=== PATIENT | female | born 1940 | race Caucasian/White ===

== ENCOUNTER 2017-01-12 18:56 | Inpatient (IN) | payer MEDICARE, OTHER, MEDICAID, SELFPAY ==
--- NOTE | 2017-01-12 19:32 | EDM.PDOC ---
ED HPI GENERAL MEDICAL PROBLEM - General Chief Complaint: Respiratory Problem Stated Complaint: SOB Time Seen by Provider: 01/12/17 19:30 - History of Present Illness INITIAL COMMENTS - FREE TEXT/NARRATIVE: Denise has been experiencing productive coughing and some escalating SOB since 1 am today. She has felt feverish, and did attend the [facility] this afternoon. The provider noted fever to 99.7 T deg F and suggested movement to ED for further evaluation. She has a PMH of COPD w asthma, and pneumonia in the past. Treatments RECORDS TECH: Reports: Other (see below) Other Treatments RECORDS TECH: used inhaler - Related Data Allergies Allergy/AdvReac Type Severity Reaction Status Date / Time albuterol Allergy Unknown Tremors Verified 01/12/17 19:18 fluticasone furoate Allergy Cough Verified 01/12/17 20:03 [From Breo Ellipta] vilanterol Allergy Cough Verified 01/12/17 20:03 [From Breo Ellipta] Home Meds: Home Meds Calcium Carbonate/Vitamin D3 [Calcium 600 + Vit D Tablet] 1 tab PO BID 11/08/13 [History] Docusate Sodium 100 mg PO BID 11/08/13 [History] Fluticasone/Salmeterol [Advair 250-50] 1 puff INH BID 11/08/13 [History] Multivitamin [Multi-Vitamin Daily] 1 tab PO DAILY 11/08/13 [History] Primidone [Mysoline] 150 mg PO DAILY 11/08/13 [History] Acetaminophen [Tylenol Arthritis Pain] 1,300 mg PO BID 10/08/15 [History] Aspirin/Calcium Carbonate/Mag [Aspirin Buffered 325 mg Tab] 1 tab PO DAILY 10/08 [History] Metoprolol Tartrate [Lopressor] 12.5 mg PO BID 10/08/15 [History] Primidone [Mysoline] 100 mg PO BEDTIME 10/08/15 [History] atorvaSTATin [Lipitor] 10 mg PO BEDTIME 10/08/15 [History] Gabapentin [Neurontin] 100 mg PO BID cap 10/11/15 [Rx] Carboxymethyl/Gly/Poly80/Pf [Refresh Optive Advanced Drops] 1 drop EYEBOTH BID 02/12/16 [History] Ipratropium [Atrovent HFA Inh] 2 puff .XX QID 02/12/16 [History] Lisinopril 5 mg PO DAILY 02/12/16 [History] Fluticasone/Salmeterol [Advair Diskus 500-50] 1 puff INH BID #1 diskus 09/20/16 [Rx] Past Medical History HEENT History: Reports: Sinusitis Other HEENT History: wears glasses Cardiovascular History: Reports: Heart valve replacement, High cholesterol, Hypertension, Pacemaker, SOB on exertion, Other (see below) Other Cardiovascular History: SICK SINUS SYNDROME Respiratory History: Reports: COPD Gastrointestinal History: Reports: Bowel obstruction 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 (see below) Other OB/BYN History: Musculoskeletal History: Reports: Osteoporosis Neurological History: Reports: Neuropathy, peripheral, Other (see below) Other Neuro History: ESSENTIAL TREMMORS Endocrine/Metabolic History: Reports: Obesity/BMI 30+ - Past Surgical History HEENT Surgical History: Reports: Cataract surgery Cardiovascular Surgical History: Reports: Pacer, Valve replacement GI Surgical History: Reports: Colon, Colonoscopy, Hernia, inguinal Musculoskeletal Surgical History: Reports: ORIF Social & Family History - Family History Endocrine/Metabolic: Reports: None - Tobacco Use Smoking Status *Q: Current Every Day Smoker Years of Tobacco use: 30 Packs/Tins Daily: 0.5 Used Tobacco, but Quit: No Second Hand Smoke Exposure: No - Caffeine Use Caffeine Use: Reports: Coffee, Tea - Alcohol Use Days Per Week of Alcohol Use: 0 - Recreational Drug Use Recreational Drug Use: No ED ROS GENERAL - Review of Systems Review Of Systems: See Below Constitutional: Reports: fever, malaise HEENT: Reports: No symptoms Respiratory: Reports: Shortness of Breath, Wheezing, Cough, Sputum Cardiovascular: Reports: Dyspnea on exertion Endocrine: Reports: no symptoms GI/Abdominal: Reports: No symptoms : Reports: no symptoms Musculoskeletal: Reports: no symptoms Skin: Reports: no symptoms Neurological: Reports: No Symptoms Psychiatric: Reports: No symptoms Hematologic/Lymphatic: Reports: no symptoms Immunologic: Reports: no symptoms ED EXAM, GENERAL - Physical Exam Exam: See Below Exam Limited By: No limitations General Appearance: alert, WD/WN, no apparent distress, anxious Eye Exam: bilateral eye: normal inspection, PERRL Ears: normal external exam, normal TMs Nose: normal inspection Throat/Mouth: Normal inspection, Normal lips, Normal oropharynx, Normal voice Head: normocephalic Neck: normal inspection, supple, non-tender, full range of motion Respiratory/Chest: chest non-tender, decreased breath sounds, crackles, wheezing , accessory muscle use, prolonged expiration Cardiovascular: systolic murmur, irregularly irregular GI/Abdominal: Normal Bowel Sounds, Soft, Non-Tender, No Organomegaly, No Distention, No Mass (Female) Exam: Deferred Rectal (Female) Exam: Deferred Back Exam: normal inspection Extremities: normal inspection Neurological: alert, oriented, CN II-XII intact, no motor/sensory deficits Psychiatric: normal affect, anxious Skin Exam: Warm, Dry, Intact, Normal color, No rash Lymphatic: no adenopathy Course - Vital Signs Text/Narrative:: Denise was admitted to the [facility] ED, administered an Atrovent Neb, Prednisone 50 mg po. Rocephin 2.0 gm IM, and supllemental 02. She lives [place] out of [place] alone, and was not suitable to return home. I recommended admission to observation with patient consent. Last Recorded V/S: Last Vital Signs Temp 37.6 C 01/12/17 19:54 Pulse 104 H 01/12/17 20:07 Resp 26 H 01/12/17 20:07 BP 132/77 01/12/17 20:07 Pulse Ox 90 L 01/12/17 20:07 - Orders/Labs/Meds Orders: Active Orders 24 hr Category Date Time Status Patient Status Manage Transfer [TRANSFER] Routine ADT 01/12/17 21:24 Ordered RT Post Treatment Assessment [RC] Click to Edit Care 01/12/17 20:11 Active Chest 2V [CR] Stat Exams 01/12/17 19:30 Taken Labs: Laboratory Tests 01/12/17 01/12/17 Range/Units 19:40 19:40 WBC 16.3 H (4.5-12.0) X10-3/uL RBC 4.62 (3.23-5.20) x10(6)uL Hgb 14.2 (11.5-15.5) g/dL Hct 42.8 (30.0-51.3) % MCV 92.6 (80-96) fL MCH 30.7 (27.7-33.6) pg MCHC 33.1 (32.2-35.4) g/dL RDW 12.5 (11.5-15.5) % Plt Count 180 (125-369) X10(3)uL MPV 7.6 (7.4-10.4) fL Add Manual Diff Yes Neutrophils % (Manual) 78 (46-82) % Band Neutrophils % 3 (0-6) % Lymphocytes % (Manual) 12 L (13-37) % Monocytes % (Manual) 6 (4-12) % Basophils % (Manual) 1 (0-2) % Sodium 136 (135-145) mmol/L Potassium 4.0 (3.5-5.3) mmol/L Chloride 103 (100-110) mmol/L Carbon Dioxide 23 (23-29) mmol/L BUN 16 (8-23) mg/dL Creatinine 0.7 (0.6-1.3) mg/dL Est Cr Clr Drug Dosing 57.20 mL/min Estimated GFR (MDRD) > 60 (>60) BUN/Creatinine Ratio 22.9 H (9-20) Glucose 117 H (80-116) mg/dL Calcium 9.8 (8.6-10.2) mg/dL Meds: Medications Discontinued Medications Generic Name Dose Route Start Last Admin Trade Name Erenq PRN Reason Stop Dose Admin Ceftriaxone Sodium 2,000 mg 01/12/17 20:13 01/12/17 21:07 Rocephin IM 01/12/17 20:14 2,000 mg ONETIME ONE Administration Ipratropium [place] 0.5 mg 01/12/17 20:10 01/12/17 20:22 Atrovent NEB 01/12/17 20:11 0.5 mg ONETIME ONE Administration Prednisone 50 mg 01/12/17 20:11 01/12/17 20:28 Prednisone PO 01/12/17 20:12 Not Given ONETIME ONE Prednisone 40 mg 01/12/17 20:26 01/12/17 20:28 Prednisone PO 01/12/17 20:27 40 mg ONETIME ONE Administration Prednisone 10 mg 01/12/17 20:27 01/12/17 20:29 Prednisone PO 01/12/17 20:28 10 mg ONETIME ONE Administration Departure - Departure Time of Disposition: 21:30 Disposition: Refer to Observation Condition: fair Clinical Impression: Acute exacerbation of COPD with asthma - Discharge Information Forms: ED Department Discharge - Problem List & Annotations (1) Acute exacerbation of COPD with asthma SNOMED Code(s): 464747973 Code(s): J44.1 - CHRONIC OBSTRUCTIVE PULMONARY DISEASE W (ACUTE) EXACERBATION ; J45.901 - UNSPECIFIED ASTHMA WITH (ACUTE) EXACERBATION Status: Acute Current Visit: Yes Annotation/Comment:: Monitor VS,offer Atrovent MDI or Nebs overnight, and supportive cares. - Problem List Review Problem List Initiated/Reviewed/Updated: Yes - My Orders Last 24 Hours: My Active Orders 01/12/17 19:30 Chest 2V [CR] Stat 01/12/17 20:11 RT Post Treatment Assessment [RC] Click to Edit 01/12/17 21:24 Patient Status Manage Transfer [TRANSFER] Routine - Assessment/Plan Last 24 Hours: My Active Orders 01/12/17 19:30 Chest 2V [CR] Stat 01/12/17 20:11 RT Post Treatment Assessment [RC] Click to Edit 01/12/17 21:24 Patient Status Manage Transfer [TRANSFER] Routine Plan: Admit to observation.
[2017-01-12] MEDS ORDERED: Ipratropium 0.02% 0.5 MG/2.5 ML Neb Soln NEB ONE (20:10)
[2017-01-12] MEDS ORDERED: predniSONE 10 MG Tab PO ONE ×2 (20:11→20:27)
[2017-01-12] MEDS ORDERED: cefTRIAXone 1,000 MG VIAL IM ONE (20:13)
[2017-01-12] MEDS ORDERED: predniSONE 20 MG Tab PO ONE (20:26)
[2017-01-12] MEDS: Acetaminophen 325 MG Tab PO PRN (23:35)
[2017-01-13] MEDS: Ipratropium 0.02% 0.5 MG/2.5 ML Neb Soln NEB PRN ×5 (00:14→15:00)
--- NOTE | 2017-01-13 09:23 | PCM.HP ---
H&P History of Present Illness - General Date of Service: 01/13/17 Admit Problem/Dx: Admission Diagnosis/Problem Admission Diagnosis/Problem COPD, Moderate chronic obstructive pulmonary disease Source of Information: Patient History Limitations: Reports: No limitations - History of Present Illness Initial Comments - Free Text/Narative: This is a 76-year-old female patient with known history of asthma/COPD. She is a lifelong smoker and smokes a pack every 4-5 days as she is trying to cut down. She states yesterday she was having chills, cough with green and yellow sputum and shortness of breath. She came in to the walk-in clinic and then was transferred over to the ER. The ureter until she should be admitted. She was hypoxic and wheezing. She states she's had chills but no fevers. She denies sore throat, nasal congestion, ear pain, sore throat, back pain. She states she gets pneumonia, COPD exacerbation and bronchitis quite frequently. - Related Data Allergies/Adverse Reactions: Allergies Allergy/AdvReac Type Severity Reaction Status Date / Time albuterol Allergy Unknown Tremors Verified 01/12/17 19:18 fluticasone furoate Allergy Cough Verified 01/12/17 20:03 [From Breo Ellipta] vilanterol Allergy Cough Verified 01/12/17 20:03 [From Breo Ellipta] Home Medications: Home Meds Calcium Carbonate/Vitamin D3 [Calcium 600 + Vit D Tablet] 1 tab PO BID 11/08/13 [History] Docusate Sodium 100 mg PO BID 11/08/13 [History] Multivitamin [Multi-Vitamin Daily] 1 tab PO DAILY 11/08/13 [History] Primidone [Mysoline] 150 mg PO DAILY 11/08/13 [History] Acetaminophen [Tylenol Arthritis Pain] 1,300 mg PO BID 10/08/15 [History] Aspirin/Calcium Carbonate/Mag [Aspirin Buffered 325 mg Tab] 1 tab PO DAILY 10/08 [History] Metoprolol Tartrate [Lopressor] 12.5 mg PO BID 10/08/15 [History] Primidone [Mysoline] 100 mg PO BEDTIME 10/08/15 [History] atorvaSTATin [Lipitor] 10 mg PO BEDTIME 10/08/15 [History] Gabapentin [Neurontin] 100 mg PO BID cap 10/11/15 [Rx] Ipratropium [Atrovent HFA Inh] 2 puff IH QID 02/12/16 [History] Lisinopril 5 mg PO DAILY 02/12/16 [History] Fluticasone/Salmeterol [Advair Diskus 500-50] 1 puff INH BID #1 diskus 09/20/16 [Rx] Cliradex Towelettes 0.5 pad EYEBOTH DAILY 01/13/17 [History] Fluticasone/Salmeterol [Advair Diskus 500-50] 1 puff IH BID 01/13/17 [History] Lidhygenix Foam 1 applic EYEBOTH DAILY 01/13/17 [History] Polyvinyl Alcohol/Povidone/Pf [Refresh Classic Eye Drops] 1 drop EYEBOTH BID 06/22 [History] Past Medical History HEENT History: Reports: Sinusitis Other HEENT History: wears glasses Cardiovascular History: Reports: Heart valve replacement, High cholesterol, Hypertension, Pacemaker, SOB on exertion, Other (see below) Other Cardiovascular History: SICK SINUS SYNDROME. 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 History: Reports: Other (see below) Other OB/BYN History: Musculoskeletal History: Reports: Osteoporosis Neurological History: Reports: Neuropathy, peripheral, Other (see below) Other Neuro History: ESSENTIAL TREMMORS Endocrine/Metabolic History: Reports: Obesity/BMI 30+ - Infectious Disease History Infectious Disease History: Reports: Chicken pox - Past Surgical History HEENT Surgical History: Reports: Cataract surgery Cardiovascular Surgical History: Reports: Pacer, Valve replacement GI Surgical History: Reports: Colon, Colonoscopy, Hernia, inguinal Female Surgical History: Reports: section Musculoskeletal Surgical History: Reports: ORIF Social & Family History - Family History Endocrine/Metabolic: Reports: None - Tobacco Use Smoking Status *Q: Current Every Day Smoker Years of Tobacco use: 40 Packs/Tins Daily: 0.1 Used Tobacco, but Quit: No Second Hand Smoke Exposure: No - Caffeine Use Caffeine Use: Reports: Coffee - Alcohol Use Days Per Week of Alcohol Use: 0 - Recreational Drug Use Recreational Drug Use: No H&P Review of Systems - Review of Systems: Review Of Systems: See Below General: Reports: chills HEENT: Reports: no symptoms Pulmonary: Reports: Shortness of Breath, Wheezing, Cough, Sputum. Denies: Pleuritic Chest Pain, Hemoptysis Cardiovascular: Reports: no symptoms Gastrointestinal: Reports: No symptoms Genitourinary: Reports: no symptoms Musculoskeletal: Reports: no symptoms Skin: Reports: no symptoms Psychiatric: Reports: no symptoms Neurological: Reports: No Symptoms Hematologic/Lymphatic: Reports: no symptoms Immunologic: Reports: no symptoms Exam - Exam Exam: See Below - Vital Signs Vital Signs: Last Vital Signs Temp 97.9 F 01/13/17 04:00 Pulse 100 01/13/17 08:16 Resp 20 01/13/17 04:00 BP 106/55 L 01/13/17 04:00 Pulse Ox 92 L 01/13/17 04:00 Weight: 135 lb 4.8 oz - Exam General: alert, oriented, cooperative HEENT: PERRLA, Hearing intact, Mucosa moist & pink, Posterior pharynx clear, TMs clear Neck: supple, trachea midline. No: carotid bruit, JVD Lungs: Decreased breath sounds, Wheezing Cardiovascular: regular rate, regular rhythm, normal S1, normal S2. No: systolic murmur, diastolic murmur Abdomen: Normal Bowel Sounds, Soft. No: Organomegaly, Peritoneal Signs, Distention, Guarding Extremities: normal inspection Skin: warm, dry, intact Neurological: strength equal bilateral, normal gait, normal speech, normal tone Neuro Extensive - Mental Status: alert, oriented x3, normal mood/affect, normal cognition, memory intact Neuro Extensive - Motor, Sensory, Reflexes: normal gait Psychiatric: alert, normal affect, normal mood - Patient Data Result Diagrams: 01/12/17 19:40 01/12/17 19:40 *Q Meaningful Use (ADM) - VTE *Q VTE Criteria *Q: - Stroke *Q Stroke Criteria *Q: - AMI *Q AMI Criteria *Q: - Problem List (1) Bronchitis SNOMED Code(s): 58670334 ICD Code: J40 - BRONCHITIS, NOT SPECIFIED ACUTE OR CHRONIC Status: Acute Current Visit: Yes (2) Acute exacerbation of COPD with asthma SNOMED Code(s): 959158610 ICD Code: J44.1 - CHRONIC OBSTRUCTIVE PULMONARY DISEASE W (ACUTE) EXACERBATION; J45.901 - UNSPECIFIED ASTHMA WITH (ACUTE) EXACERBATION Status: Acute Current Visit: Yes Problem Details: Monitor VS,offer Atrovent MDI or Nebs overnight, and supportive cares. Problem List Initiated/Reviewed/Updated: Yes Orders Last 24hrs: Active Orders 24 hr Category Date Time Status Activity as Tolerated [RC] .Routine Care 01/12/17 22:21 Active Regular Diet [DIET] Diet 01/13/17 Breakfast Active Acetaminophen [Tylenol] Med 01/12/17 22:20 Active 650 mg PO Q4H PRN Ipratropium [Atrovent] Med 01/12/17 23:45 Active 0.5 mg NEB Q4H PRN Code Status [Resuscitation Status] Routine Resus Stat 01/12/17 23:45 Ordered Medication Orders Acetaminophen (Tylenol) 650 mg PO Q4H PRN PRN Reason: Headache Last Admin: 01/12/17 23:35 Dose: 650 mg Ipratropium [place] (Atrovent) 0.5 mg NEB Q4H PRN PRN Reason: Shortness of Breath Last Admin: 01/13/17 08:16 Dose: 0.5 mg Admin: 01/13/17 04:13 Dose: 0.5 mg Admin: 01/13/17 00:14 Dose: 0.5 mg Assessment/Plan Comment:: 1. She was admitted for observation but I'm going to change her to inpatient. I don't believe she'll go home by tomorrow. 2. Solu-Medrol IV. 3. Continue Rocephin but add Zithromax 4. DuoNeb's every 4 hours and when necessary. 5. Continue home meds. 6. Recheck CBC and electrolytes in the a.m. 7. Up with assist. 8. Regular diet.
[2017-01-13] MEDS ORDERED: Azithromycin 500 MG Tab PO SCH (10:00)
[2017-01-13] MEDS: Aspirin 325 MG Tab.EC PO SCH (10:36)
[2017-01-13] MEDS: Lisinopril 5 MG Tab PO SCH (10:36)
[2017-01-13] MEDS: Multivitamin Tab PO SCH (10:37)
[2017-01-13] MEDS: Metoprolol Tartrate 25 MG Tab PO SCH ×2 (10:37→20:13)
[2017-01-13] MEDS: Docusate Sodium 100 MG Cap PO SCH ×2 (10:37→20:13)
[2017-01-13] MEDS: Acetaminophen 650 MG Tab.ER PO SCH ×2 (10:38→20:15)
[2017-01-13] MEDS: Gabapentin 100 MG Cap PO SCH ×2 (10:38→20:14)
[2017-01-13] MEDS: Primidone 50 MG Tab PO SCH ×2 (10:38→20:14)
[2017-01-13] MEDS: methylPREDNISolone Sodium Succinate 125 MG/2 ML SDV IVPUSH SCH ×2 (10:38→18:26)
[2017-01-13] MEDS: Carboxymethylcellulose Sodium 0.5% Ophth Soln 15 ML Bottle EYEBOTH SCH ×2 (10:39→20:14)
[2017-01-13] MEDS: Calcium Carbonate/Vitamin D3 1250 MG-200 Unit Tab PO SCH ×2 (10:39→20:13)
--- NOTE | 2017-01-13 13:11 | CR ---
INDICATION: COPD exacerbation. CHEST: PA and lateral views of the chest were obtained 01/12/2017 and compared with 10/09/2015 and 11/08/2013, revealing prominent AP diameter, hyperaeration, and slightly flattened diaphragm leaves, compatible with COPD. Appearance is similar to 2014. A definite active infiltrate or effusion was not identified. The heart appeared enlarged with mitral valve replacement and bipolar pacemaker leads in place, as previously in 2016. The aorta is tortuous with calcification in the arch. Evidence of median sternotomy is noted with wire sutures. Bony structures appear to be intact. IMPRESSION: 1. No acute process. 2. COPD. 3. ASHD, mild cardiomegaly, post mitral valve and bipolar pacemaker lead placement. MTDD
[2017-01-13] MEDS: Sodium Chloride 0.9% 10 ML Syringe FLUSH PRN ×2 (18:26→20:10)
[2017-01-13] MEDS: cefTRIAXone 1,000 MG in Sodium Chloride 0.9% 50 ML IV SCH (20:10)
[2017-01-13] MEDS: atorvaSTATin 10 MG Tab PO SCH (20:13)
[2017-01-13] MEDS ORDERED: Sodium Chloride 0.9% 250 ML IV SCH (20:30)
[2017-01-14] MEDS: methylPREDNISolone Sodium Succinate 125 MG/2 ML SDV IVPUSH SCH (01:22)
[2017-01-14] MEDS: Sodium Chloride 0.9% 10 ML Syringe FLUSH PRN (01:24)
[2017-01-14] MEDS: Ipratropium 0.02% 0.5 MG/2.5 ML Neb Soln NEB PRN (07:20)
--- NOTE | 2017-01-14 08:36 | PCM.PN ---
- General Info Date of Service: 01/14/17 Admission Dx/Problem (Free Text): Patient states she is breathing better today. She is coughing up phlegm and when she feels short of breath. That's less frequent. She denies chest pain, fevers, chills. She's had some pain in her left thoracic rib area for quite some time. The product manager recommended a CT scan. She denies history of leg swelling. - Patient Data Vitals - most recent: Last Vital Signs Temp 97.9 F 01/14/17 00:00 Pulse 90 01/14/17 07:23 Resp 20 01/14/17 04:00 BP 122/56 L 01/14/17 00:00 Pulse Ox 94 L 01/14/17 07:23 Weight - most recent: 135 lb 4.8 oz I&O - last 24 hours: Intake & Output 01/13/17 01/14/17 01/14/17 22:59 06:59 14:59 Intake Total 180 Balance 180 Lab Results last 24 hrs: Laboratory Results - last 24 hr 01/14/17 01/14/17 Range/Units 06:28 06:28 WBC 8.8 (4.5-12.0) X10-3/uL RBC 4.32 (3.23-5.20) x10(6)uL Hgb 13.6 (11.5-15.5) g/dL Hct 40.6 (30.0-51.3) % MCV 94.1 (80-96) fL MCH 31.5 (27.7-33.6) pg MCHC 33.4 (32.2-35.4) g/dL RDW 12.5 (11.5-15.5) % Plt Count 180 (125-369) X10(3)uL MPV 8.1 (7.4-10.4) fL Neut % (Auto) 81.5 (46-82) % Lymph % (Auto) 15.6 (13-37) % Dukes % (Auto) 2.6 L (4-12) % Eos % (Auto) 0 L (1.0-5.0) % Baso % (Auto) 0 (0-2) % Neut # (Auto) 7.2 (1.6-8.3) # Lymph # (Auto) 1.4 (0.6-5.0) # Dukes # (Auto) 0.2 (0.0-1.3) # Eos # (Auto) 0.0 (0.0-0.8) # Baso # (Auto) 0.0 (0.0-0.2) # Sodium 137 (135-145) mmol/L Potassium 4.2 (3.5-5.3) mmol/L Chloride 105 (100-110) mmol/L Carbon Dioxide 25 (23-29) mmol/L BUN 19 (8-23) mg/dL Creatinine 0.6 (0.6-1.3) mg/dL Est Cr Clr Drug Dosing 68.13 mL/min Estimated GFR (MDRD) > 60 (>60) BUN/Creatinine Ratio 31.7 H (9-20) Glucose 147 H (80-116) mg/dL Calcium 8.8 (8.6-10.2) mg/dL Total Bilirubin 0.3 (0.1-1.3) mg/dL AST 26 (5-27) IU/L ALT 16 D (14-26) IU/L Alkaline Phosphatase 64 (56-112) IU/L Total Protein 7.2 (6.0-8.0) g/dL Albumin 3.7 (3.2-4.6) g/dL Globulin 3.5 g/dL Albumin/Globulin Ratio 1.1 Med Orders - Current: Current Medications Acetaminophen (Tylenol) 650 mg PO Q4H PRN PRN Reason: Headache Last Admin: 01/12/17 23:35 Dose: 650 mg Acetaminophen (Tylenol Arthritis Pain) 1,300 mg PO BID [facility] Last Admin: 01/13/17 20:15 Dose: 1,300 mg Artificial Tears (Refresh Tears 0.5%) 0 ml EYEBOTH BID [facility] Last Admin: 01/13/17 20:14 Dose: 1 drop Aspirin (Ecotrin) 325 mg PO DAILY [facility] Last Admin: 01/13/17 10:36 Dose: 325 mg Atorvastatin Calcium (Lipitor) 10 mg PO BEDTIME [facility] Last Admin: 01/13/17 20:13 Dose: 10 mg Azithromycin (Zithromax) 250 mg PO DAILY [facility] Calcium Carbonate (Calcium Carbonate/Vitamin D 1250 Mg-200 Unit) 1 tab PO BID [facility] Last Admin: 01/13/17 20:13 Dose: 1 tab Docusate Sodium (Colace) 100 mg PO BID [facility] Last Admin: 01/13/17 20:13 Dose: 100 mg Gabapentin (Neurontin) 100 mg PO BID [facility] Last Admin: 01/13/17 20:14 Dose: 100 mg Ceftriaxone Sodium 1,000 mg/ (Sodium Chloride) 50 mls @ 100 mls/hr IV Q24H [facility] Last Admin: 01/13/17 20:10 Dose: 100 mls/hr Sodium Chloride (Normal Saline) 250 mls @ 100 mls/hr IV ASDIRECTED [facility] Last Admin: 01/13/17 20:10 Dose: 100 mls/hr Ipratropium [place] (Atrovent) 0.5 mg NEB Q4H PRN PRN Reason: Shortness of Breath Last Admin: 01/14/17 07:20 Dose: 0.5 mg Lisinopril (Prinivil) 5 mg PO DAILY [facility] Last Admin: 01/13/17 10:36 Dose: 5 mg Methylprednisolone Sodium Succinate (Solu-Medrol) 125 mg IVPUSH Q8H [facility] Last Admin: 01/14/17 01:22 Dose: 125 mg Metoprolol Tartrate (Lopressor) 12.5 mg PO BID [facility] Last Admin: 01/13/17 20:13 Dose: 12.5 mg Multivitamins/Minerals/Vitamin C (Tab-A-Neftali) 1 tab PO DAILY [facility] Last Admin: 01/13/17 10:37 Dose: 1 tab Primidone (Mysoline) 100 mg PO BEDTIME [facility] Last Admin: 01/13/17 20:14 Dose: 100 mg Primidone (Mysoline) 150 mg PO DAILY [facility] Last Admin: 01/13/17 10:38 Dose: 150 mg Sodium Chloride (Saline Flush) 10 ml FLUSH ASDIRECTED PRN PRN Reason: Keep Vein Open Last Admin: 01/14/17 01:24 Dose: 10 ml Discontinued Medications Azithromycin (Zithromax) 500 mg PO DAILY [facility] Stop: 01/13/17 10:01 Last Admin: 01/13/17 10:39 Dose: 500 mg Ceftriaxone Sodium (Rocephin) 2,000 mg IM ONETIME ONE Stop: 01/12/17 20:14 Last Admin: 01/12/17 21:07 Dose: 2,000 mg Ipratropium [place] (Atrovent) 0.5 mg NEB ONETIME ONE Stop: 01/12/17 20:11 Last Admin: 01/12/17 20:22 Dose: 0.5 mg Non-Formulary Medication (Cliradex Towelettes) 0.5 pad EYEBOTH DAILY [facility] Non-Formulary Medication (Lidhygenix Foam) 1 applic EYEBOTH DAILY [facility] Prednisone (Prednisone) 50 mg PO ONETIME ONE Stop: 01/12/17 20:12 Last Admin: 01/12/17 20:28 Dose: Not Given Prednisone (Prednisone) 40 mg PO ONETIME ONE Stop: 01/12/17 20:27 Last Admin: 01/12/17 20:28 Dose: 40 mg Prednisone (Prednisone) 10 mg PO ONETIME ONE Stop: 01/12/17 20:28 Last Admin: 01/12/17 20:29 Dose: 10 mg - Exam General: alert, oriented, cooperative Lungs: Normal respiratory effort, Decreased breath sounds (Moving a little bit more air than yesterday), Wheezing Cardiovascular: Regular Rate, Regular Rhythm, No Murmurs Back Exam: normal inspection Extremities: no edema Psy/Mental Status: alert, normal affect, normal mood - Problem List & Annotations (1) Bronchitis SNOMED Code(s): 82776835 Code(s): J40 - BRONCHITIS, NOT SPECIFIED ACUTE OR CHRONIC Status: Acute Current Visit: Yes (2) Acute exacerbation of COPD with asthma SNOMED Code(s): 764478984 Code(s): J44.1 - CHRONIC OBSTRUCTIVE PULMONARY DISEASE W (ACUTE) EXACERBATION ; J45.901 - UNSPECIFIED ASTHMA WITH (ACUTE) EXACERBATION Status: Acute Current Visit: Yes Annotation/Comment:: Monitor VS,offer Atrovent MDI or Nebs overnight, and supportive cares. - Problem List Review Problem List Initiated/Reviewed/Updated: Yes - My Orders Last 24 Hours: My Active Orders 01/13/17 10:47 Sodium Chloride 0.9% [Saline Flush] 10 ml FLUSH ASDIRECTED PRN 01/13/17 20:30 Sodium Chloride 0.9% [Normal Saline] 250 ml IV ASDIRECTED 01/13/17 21:00 cefTRIAXone [Rocephin] 1,000 mg Sodium Chloride 0.9% [Normal Saline] 50 ml IV Q24H 01/14/17 08:29 D Dimer [D-DIMER QUANTITATIVE] [COAG] Routine 01/14/17 08:32 Up ad Moraima [RC] ASDIRECTED Vital Signs [RC] QSHIFT Convert IV to Saline Lock [OM.PC] Routine 01/14/17 09:00 methylPREDNISolone Sod Succ [Solu-MEDROL] 125 mg IVPUSH DAILY - Plan Plan:: 1. change Solu-Medrol 225 mg every 24 hours. 2. Duo nebs 4 times a day and every 4 hours when necessary. 3. Change vitals every shift. 4. Start weaning down on her o2. 5. Ambulate the patient without O2 and check her O2 sats. 6. Check a d-dimer. If it's normal no further treatment. If it's elevated consider CT of the chest. Probability low for PE. 7. Up ad moraima. 8. Saline lock IV.
[2017-01-14] MEDS ORDERED: Albuterol/Ipratropium 3.0-0.5 MG/3 ML Neb Soln NEB PRN (08:45)
[2017-01-14] MEDS ORDERED: methylPREDNISolone Sodium Succinate 125 MG/2 ML SDV IVPUSH SCH (09:00)
[2017-01-14] MEDS ORDERED: [UNRECOGNIZED DRUG - OTHER] EYEBOTH SCH (09:00)
[2017-01-14] MEDS ORDERED: Albuterol/Ipratropium 3.0-0.5 MG/3 ML Neb Soln NEB SCH (09:00)
[2017-01-14] MEDS ORDERED: [UNRECOGNIZED DRUG - OTHER] EYEBOTH SCH (09:00)
[2017-01-14] MEDS: Multivitamin Tab PO SCH (09:05)
[2017-01-14] MEDS: Primidone 50 MG Tab PO SCH ×2 (09:05→21:55)
[2017-01-14] MEDS: Aspirin 325 MG Tab.EC PO SCH (09:05)
[2017-01-14] MEDS: Azithromycin 250 MG Tab PO SCH (09:05)
[2017-01-14] MEDS: Docusate Sodium 100 MG Cap PO SCH ×2 (09:05→21:53)
[2017-01-14] MEDS: Gabapentin 100 MG Cap PO SCH ×2 (09:05→21:55)
[2017-01-14] MEDS: Calcium Carbonate/Vitamin D3 1250 MG-200 Unit Tab PO SCH ×2 (09:05→21:53)
[2017-01-14] MEDS: Carboxymethylcellulose Sodium 0.5% Ophth Soln 15 ML Bottle EYEBOTH SCH ×2 (09:06→21:55)
[2017-01-14] MEDS: Acetaminophen 650 MG Tab.ER PO SCH ×2 (09:09→21:56)
[2017-01-14] MEDS: Lisinopril 5 MG Tab PO SCH (09:09)
[2017-01-14] MEDS: Metoprolol Tartrate 25 MG Tab PO SCH ×2 (09:09→21:57)
[2017-01-14] MEDS: Ipratropium 0.02% 0.5 MG/2.5 ML Neb Soln NEB SCH ×3 (11:15→21:53)
[2017-01-14] MEDS: atorvaSTATin 10 MG Tab PO SCH (21:54)
[2017-01-14] MEDS: cefTRIAXone 1,000 MG in Sodium Chloride 0.9% 50 ML IV SCH (21:56)
[2017-01-15] MEDS ORDERED: Ipratropium 0.02% 0.5 MG/2.5 ML Neb Soln NEB ONE (02:32)
[2017-01-15] MEDS: Ipratropium 0.02% 0.5 MG/2.5 ML Neb Soln NEB SCH ×4 (07:06→21:08)
[2017-01-15] MEDS: Acetaminophen 325 MG Tab PO PRN (07:32)
[2017-01-15] MEDS: Docusate Sodium 100 MG Cap PO SCH ×2 (09:01→21:14)
[2017-01-15] MEDS: Calcium Carbonate/Vitamin D3 1250 MG-200 Unit Tab PO SCH ×2 (09:01→21:10)
[2017-01-15] MEDS: Aspirin 325 MG Tab.EC PO SCH (09:01)
[2017-01-15] MEDS: Gabapentin 100 MG Cap PO SCH ×2 (09:03→21:16)
[2017-01-15] MEDS: Primidone 50 MG Tab PO SCH ×2 (09:03→21:13)
[2017-01-15] MEDS: Azithromycin 250 MG Tab PO SCH (09:04)
[2017-01-15] MEDS: Carboxymethylcellulose Sodium 0.5% Ophth Soln 15 ML Bottle EYEBOTH SCH ×2 (09:04→21:12)
[2017-01-15] MEDS: Multivitamin Tab PO SCH (09:04)
[2017-01-15] MEDS: predniSONE 20 MG Tab PO SCH ×2 (09:11→17:47)
[2017-01-15] MEDS: Lisinopril 5 MG Tab PO SCH (09:12)
[2017-01-15] MEDS: Acetaminophen 650 MG Tab.ER PO SCH ×2 (11:26→21:14)
--- NOTE | 2017-01-15 13:46 | PN ---
DATE SEEN: 01/15/2017 REASON FOR VISIT: COPD. HISTORY OF PRESENT ILLNESS: This is a 76-year-old female, who was admitted for COPD exacerbation. Even though she is off oxygen this morning, she complains of shortness of breath and coughing on any ambulation or any exertion. The cough is productive. She has wheezing. Denies fever or chills. REVIEW OF SYSTEMS: All other systems were negative. ALLERGIES TO MEDICATIONS: Reviewed. PAST MEDICAL HISTORY: COPD, sick sinus syndrome, hypertension, peripheral neuropathy, essential tremors. PHYSICAL EXAMINATION: GENERAL: Not in distress. VITAL SIGNS: Blood pressure 116/52, temperature is 98.0. EAR, NOSE, AND THROAT: Negative. NECK: Supple. CHEST: End-expiratory rhonchi. Tachypnea. EXTREMITIES: No edema. MENTAL STATUS: Anxious. IMPRESSION: Chronic obstructive pulmonary disease exacerbation. PLAN: Switch to oral prednisone and azithromycin. Organize and obtain a nebulizer machine and oxygen at home for possible discharge tomorrow. Repeat a CBC, BNP and basic metabolic profile tomorrow morning. /[id number] MYKEL/SHARDAL
[2017-01-15] MEDS: atorvaSTATin 10 MG Tab PO SCH (21:16)
[2017-01-16] MEDS: Ipratropium 0.02% 0.5 MG/2.5 ML Neb Soln NEB SCH (07:17)
[2017-01-16] MEDS: Primidone 50 MG Tab PO SCH (08:26)
[2017-01-16] MEDS: Aspirin 325 MG Tab.EC PO SCH (08:27)
[2017-01-16] MEDS: Calcium Carbonate/Vitamin D3 1250 MG-200 Unit Tab PO SCH (08:27)
[2017-01-16] MEDS: Docusate Sodium 100 MG Cap PO SCH (08:27)
[2017-01-16] MEDS: Multivitamin Tab PO SCH (08:27)
[2017-01-16] MEDS: predniSONE 20 MG Tab PO SCH (08:27)
[2017-01-16] MEDS: Acetaminophen 650 MG Tab.ER PO SCH (08:28)
[2017-01-16] MEDS: Gabapentin 100 MG Cap PO SCH (08:28)
[2017-01-16] MEDS: Lisinopril 5 MG Tab PO SCH (08:29)
[2017-01-16] MEDS: Azithromycin 250 MG Tab PO SCH (08:29)
[2017-01-16] MEDS: Carboxymethylcellulose Sodium 0.5% Ophth Soln 15 ML Bottle EYEBOTH SCH (08:29)
[2017-01-16 08:30] VITALS: BP 137/69
--- NOTE | 2017-01-16 09:13 | PN ---
DATE SEEN: 01/16/2017 REASON FOR VISIT: COPD. HISTORY OF PRESENT ILLNESS: This is a 76-year-old female who has had COPD. Overnight, she did quite well. She still has some tightness and cough, but has been off oxygen for more than 24 hours. No fever has been reported. Denies any chest pain. REVIEW OF SYSTEMS: All other systems unremarkable. ALLERGIES: Albuterol and vilanterol. PHYSICAL EXAMINATION: VITAL SIGNS: Blood pressure is 111/59, oxygenation 92% on room air. EARS, NOSE, AND THROAT: Negative. NECK: Supple. CHEST: Mild occasional rhonchi. EXTREMITIES: No edema. LABORATORY DATA: White cell count is 8.5 today. Potassium is 5.4. BNP 110. IMPRESSION: Chronic obstructive pulmonary disease exacerbation. PLAN: To discharge home today. She will go home on prednisone 20 mg b.i.d., Atrovent. She will need services for med management /[id number] MYKEL/LEONARDO GARCIA
--- NOTE | 2017-01-16 22:05 | DISCH ---
DISCHARGE DATE: 01/16/2017 REASON FOR ADMISSION: Chronic obstructive pulmonary disease exacerbation. DISCHARGE DIAGNOSIS: Chronic obstructive pulmonary disease exacerbation. BRIEF HISTORY AND HOSPITAL COURSE: This is a 76-year-old female, who was brought in because of shortness of breath. She has a history of COPD, sick sinus syndrome, hypertension, and peripheral neuropathy and essential tremors. She continues to smoke. Chest x-ray was negative. She was put on azithromycin, Solu-Medrol, SVNs, her symptoms improved. She did not need oxygenation the last 24 hours. I discharged her home on nebulized therapy of Atrovent, and prednisone 10 mg b.i.d., and to complete a 5-day course of azithromycin. I therefore sent on three more days of 250 mg daily. OTHER DISCHARGE MEDICATIONS: Lisinopril 5 mg daily, Lipitor 10 mg a day, primidone 150 mg daily, and 100 mg at bedtime, 1 multivitamin a day, gabapentin 100 mg b.i.d., docusate 100 mg b.i.d., calcium carbonate 1 tablet b.i.d., aspirin 325 mg a day, acetaminophen 1300 mg b.i.d. FOLLOWUP: She will see Dr. Shari Vital next week on . She is advised to return to the ED with any worsening of symptoms and smoke cessation counseling was provided for 3-5 minutes. I spent more than 35 minute in the discharge of the patient. /[id number] MYKEL/LEONARDO
== END 2017-01-16 09:40 | disposition home health service (06) | DRG 192 ==
LOC: FB.ED 18:56 → FB.MS 21:24 → OBSVTOIN 01-13 09:42
PROVIDERS: ADMIT Family Medicine; ATTEND Family Medicine
DX: J44.0 Chronic obstructive pulmonary disease with (acute) lower respiratory infection (principal); J20.9 Acute bronchitis, unspecified; J44.1 Chronic obstructive pulmonary disease with (acute) exacerbation; F17.200 Nicotine dependence, unspecified, uncomplicated; I10 Essential (primary) hypertension; E78.00 Pure hypercholesterolemia, unspecified; Z95.2 Presence of prosthetic heart valve; M81.0 Age-related osteoporosis without current pathological fracture; G62.9 Polyneuropathy, unspecified; E66.9 Obesity, unspecified; Z68.30 Body mass index [BMI] 30.0-30.9, adult; Z79.82 Long term (current) use of aspirin; Z79.899 Other long term (current) drug therapy; Z88.8 Allergy status to other drugs, medicaments and biological substances; G25.0 Essential tremor
CPT/HCPCS: 36415; 71020; 80048; 85025; 94640 ×2; 96372; 99285; A9270 ×3; J0696; 80053; 83880; 85379; G0378; J2930; J7050

== ENCOUNTER 2017-02-16 08:47 | Inpatient (IN) | payer MEDICARE, OTHER, MEDICAID ==
[2017-02-16] MEDS ORDERED: Warfarin Sliding Scale PO SCH (16:00)
[2017-02-16] MEDS: atorvaSTATin 10 MG Tab PO SCH (18:22)
--- NOTE | 2017-02-16 19:07 | PCM.HP ---
H&P History of Present Illness - General Date of Service: 02/16/17 Admit Problem/Dx: Admission Diagnosis/Problem Admission Diagnosis/Problem CVA, Cerebrovascular accident Source of Information: Patient History Limitations: Reports: No Limitations - History of Present Illness Initial Comments - Free Text/Narative: This is a 76-year-old female patient that had a left CVA with right-sided weakness. She was transferred to [facility]. Discharged to [facility] for rehab. She says she had profound weakness in the arm and the leg. Now the leg is recovered and is mostly just the hand. She denies dysphagia or aphagia. She has a history of atrial fibrillation and a valve repair on Coumadin. She has no other concerns today. - Related Data Allergies/Adverse Reactions: Allergies Allergy/AdvReac Type Severity Reaction Status Date / Time albuterol Allergy Unknown Tremors Verified 01/12/17 19:18 fluticasone furoate Allergy Cough Verified 01/12/17 20:03 [From Breo Ellipta] vilanterol Allergy Cough Verified 01/12/17 20:03 [From Breo Ellipta] Home Medications: Home Meds Docusate Sodium 100 mg PO BID 11/08/13 [History] Multivitamin [Multi-Vitamin Daily] 1 tab PO DAILY 11/08/13 [History] Primidone [Mysoline] 150 mg PO DAILY 11/08/13 [History] Acetaminophen [Tylenol Arthritis Pain] 1,300 mg PO BID 10/08/15 [History] Metoprolol Tartrate [Lopressor] 12.5 mg PO BID 10/08/15 [History] Primidone [Mysoline] 100 mg PO BEDTIME 10/08/15 [History] atorvaSTATin [Lipitor] 10 mg PO 1800 10/08/15 [History] Gabapentin [Neurontin] 100 mg PO BID cap 10/11/15 [Rx] Ipratropium [Atrovent HFA] 2 puff IH QID 02/12/16 [History] Lisinopril 5 mg PO DAILY 02/12/16 [History] Fluticasone/Salmeterol [Advair Diskus 500-50] 1 puff INH BID #1 diskus 09/20/16 [Rx] Polyvinyl Alcohol/Povidone/Pf [Refresh Classic Eye Drops] 1 drop EYEBOTH BID 06/22 [History] Amoxicillin [Amoxil] 500 mg PO Q8H 02/16/17 [History] Aspirin 81 mg PO DAILY 02/16/17 [History] Calcium Carbonate/Vitamin D3 [Calcium 500 + Vit D 200 Caplet] 1 each PO BID [History] Warfarin Sliding Scale [Coumadin Sliding Scale] 1 each PO DAILY 02/16/17 [ History] Past Medical History HEENT History: Reports: Sinusitis Other HEENT History: wears glasses Cardiovascular History: Reports: Heart Valve Replacement, High Cholesterol, Hypertension, Pacemaker, SOB on Exertion, Other (See Below) Other Cardiovascular History: SICK SINUS SYNDROME. 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 History: Musculoskeletal History: Reports: Osteoporosis Neurological History: Reports: Neuropathy, Peripheral, Other (See Below) Other Neuro History: ESSENTIAL TREMMORS Endocrine/Metabolic History: Reports: Obesity/BMI 30+ - Infectious Disease History Infectious Disease History: Reports: Chicken Pox - Past Surgical History HEENT Surgical History: Reports: Cataract Surgery Cardiovascular Surgical History: Reports: Pacer, Valve Replacement GI Surgical History: Reports: Colon, Colonoscopy, Hernia, Inguinal Female Surgical History: Reports: Section Musculoskeletal Surgical History: Reports: ORIF Social & Family History - Family History Endocrine/Metabolic: Reports: None - Tobacco Use Smoking Status *Q: Current Every Day Smoker Years of Tobacco use: 10 Packs/Tins Daily: 1 Used Tobacco, but Quit: No Second Hand Smoke Exposure: No - Caffeine Use Caffeine Use: Reports: Coffee - Alcohol Use Days Per Week of Alcohol Use: 0 - Recreational Drug Use Recreational Drug Use: No H&P Review of Systems - Review of Systems: Review Of Systems: See Below General: Reports: No Symptoms HEENT: Reports: No Symptoms Pulmonary: Reports: No Symptoms Cardiovascular: Reports: No Symptoms Gastrointestinal: Reports: No Symptoms Genitourinary: Reports: No Symptoms Musculoskeletal: Reports: Other (See HPI) Skin: Reports: No Symptoms Psychiatric: Reports: No Symptoms Neurological: Reports: No Symptoms Hematologic/Lymphatic: Reports: No Symptoms Immunologic: Reports: No Symptoms Exam - Exam Exam: See Below - Vital Signs Vital Signs: Last Vital Signs Temp 98.2 F 02/16/17 16:07 Pulse 90 02/16/17 16:07 Resp 17 02/16/17 16:07 BP 126/64 02/16/17 16:07 Pulse Ox 94 L 02/16/17 16:07 Weight: 135 lb 4.8 oz - Exam General: Alert, Oriented, Cooperative HEENT: Conjunctiva Clear, Hearing Intact, Mucosa Moist & [place], Posterior Pharynx Clear, TMs Clear. No: Abnormal Pupils, Rhinitis Neck: Supple, Trachea Midline. No: Carotid Bruit Lungs: Clear to Auscultation, Normal Respiratory Effort Cardiovascular: Regular Rate, Irregular Rhythm. No: Systolic Murmur Abdomen: Normal Bowel Sounds, Soft. No: Peritoneal Signs, Distention, Guarding Back Exam: Normal Inspection, Full Range of Motion Extremities: Other (Right arm and hand weakness. Left arm, both legs normal strength and symmetric.) Skin: Warm, Dry, Intact, Ecchymosis Neurological: Normal Speech, Normal Tone Neuro Extensive - Mental Status: Alert, Oriented x3, Normal Mood/Affect, Normal Cognition Psychiatric: Alert, Normal Affect, Normal Mood *Q Meaningful Use (ADM) - VTE *Q VTE Criteria *Q: - Stroke *Q Stroke Criteria *Q: - AMI *Q AMI Criteria *Q: - Problem List (1) Left-sided cerebrovascular accident (CVA) SNOMED Code(s): 261584685 ICD Code: I63.9 - CEREBRAL INFARCTION, UNSPECIFIED Status: Acute Current Visit: Yes (2) Atrial fibrillation SNOMED Code(s): 80902673 ICD Code: I48.91 - UNSPECIFIED ATRIAL FIBRILLATION Status: Acute Current Visit: Yes Problem List Initiated/Reviewed/Updated: Yes Orders Last 24hrs: Active Orders 24 hr Category Date Time Status Patient Status [ADT] Routine ADT 02/16/17 12:00 Active Patient Status [ADT] Routine ADT 02/16/17 17:04 Active Oxygen Therapy [RC] PRN Care 02/16/17 17:04 Active Up With Assistance [RC] ASDIRECTED Care 02/16/17 17:04 Active VTE/DVT Education [RC] Per Unit Routine Care 02/16/17 17:04 Active Vital Signs [RC] PER UNIT ROUTINE Care 02/16/17 17:04 Active OT Evaluation and Treatment [CONS] Routine Cons 02/16/17 12:00 Active PT Evaluation and Treatment [CONS] Routine Cons 02/16/17 12:00 Active Regular Diet [DIET] Diet 02/16/17 Dinner Active Regular Diet [DIET] Diet 02/16/17 Dinner Active INR,PT,PROTHROMBIN TIME [COAG] DAILY Lab 02/17/17 05:10 Ordered INR,PT,PROTHROMBIN TIME [COAG] DAILY Lab 02/18/17 05:10 Ordered INR,PT,PROTHROMBIN TIME [COAG] DAILY Lab 02/19/17 05:10 Ordered Acetaminophen [Tylenol Arthritis Pain] Med 02/16/17 21:00 Active 1,300 mg PO BID Amoxicillin [Amoxil] Med 02/16/17 22:00 Active 500 mg PO Q8H Aspirin Med 02/17/17 09:00 Active 81 mg PO DAILY Calcium Carbonate/Vitamin D3 [Calcium Carbonate/Vitamin Med 02/16/17 21:00 Active D 1250 MG-200 Unit] 1 tab PO BID Docusate Sodium [Colace] Med 02/16/17 21:00 Active 100 mg PO BID Gabapentin [Neurontin] Med 02/16/17 21:00 Active 100 mg PO BID Ipratropium [Atrovent HFA] Med 02/16/17 21:00 Active 0 gm INH QIDRT Lisinopril [Prinivil] Med 02/17/17 09:00 Active 5 mg PO DAILY Metoprolol Tartrate [Lopressor] Med 02/16/17 21:00 Active 12.5 mg PO BID Mometasone/Formoterol [Dulera 200-5 MCG] Med 02/16/17 21:00 Active 2 puff IH BIDRT Multivitamins [Tab-A-Neftali] Med 02/17/17 09:00 Active 1 tab PO DAILY Polyvinyl Alcohol/Povidone/Pf [Refresh Classic Eye Med 02/16/17 21:00 Pending Drops] 1 drop EYEBOTH BID Primidone [Mysoline] Med 02/16/17 21:00 Active 100 mg PO BEDTIME Primidone [Mysoline] Med 02/17/17 09:00 Active 150 mg PO DAILY Warfarin Sliding Scale [Coumadin Sliding Scale] Med 02/16/17 16:00 Pending 1 each PO 1600 atorvaSTATin [Lipitor] Med 02/16/17 18:00 Active 10 mg PO 1800 Resuscitation Status Routine Resus Stat 02/16/17 17:04 Ordered Medication Orders Acetaminophen (Tylenol Arthritis Pain) 1,300 mg PO BID ADAN Amoxicillin (Amoxil) 500 mg PO Q8H ADAN Aspirin (Aspirin) 81 mg PO DAILY [facility] Atorvastatin Calcium (Lipitor) 10 mg PO 1800 [facility] Last Admin: 02/16/17 18:22 Dose: 10 mg Calcium Carbonate (Calcium Carbonate/Vitamin D 1250 Mg-200 Unit) 1 tab PO BID [facility] Docusate Sodium (Colace) 100 mg PO BID [facility] Gabapentin (Neurontin) 100 mg PO BID [facility] Ipratropium [place] (Atrovent Hfa) 0 gm INH QIDRT [facility] Lisinopril (Prinivil) 5 mg PO DAILY [facility] Metoprolol Tartrate (Lopressor) 12.5 mg PO BID [facility] Mometasone Furoate/Formoterol Fumar (Dulera 200-5 Mcg) 2 puff IH BIDRT [facility] Multivitamins/Minerals/Vitamin C (Tab-A-Neftali) 1 tab PO DAILY [facility] Non-Formulary Medication (Polyvinyl Alcohol/Povidone/Pf [Refresh Classic Eye Drops]) 1 drop EYEBOTH BID [facility] Primidone (Mysoline) 150 mg PO DAILY [facility] Primidone (Mysoline) 100 mg PO BEDTIME [facility] Warfarin Sodium (Coumadin Sliding Scale) 1 each PO 1600 [facility] Assessment/Plan Comment:: 1. Admit to swing bed. 2. Discussed living will. Patient wants to be a full code. 3. PT/OT. 4. Pharmacy to dose Coumadin. 5. Regular medications as per [facility].
[2017-02-16] MEDS ORDERED: Formoterol/Mometasone 100-5 MCG 8.8 GM Inhaler ONE (21:23)
[2017-02-16] MEDS: Ipratropium 12.9 GM Inhaler INH SCH (21:41)
[2017-02-16] MEDS: Docusate Sodium 100 MG Cap PO SCH (21:43)
[2017-02-16] MEDS: Calcium Carbonate/Vitamin D3 1250 MG-200 Unit Tab PO SCH (21:43)
[2017-02-16] MEDS: Gabapentin 100 MG Cap PO SCH (21:46)
[2017-02-16] MEDS: Acetaminophen 650 MG Tab.ER PO SCH (21:46)
[2017-02-16] MEDS: Amoxicillin 500 MG Cap PO SCH (21:47)
[2017-02-16] MEDS: Formoterol/Mometasone 200-5 MCG 8.8 GM Inhaler IH SCH (21:52)
[2017-02-16] MEDS: Metoprolol Tartrate 25 MG Tab PO SCH (21:54)
[2017-02-16] MEDS: Primidone 50 MG Tab PO SCH (22:10)
[2017-02-17] MEDS: Amoxicillin 500 MG Cap PO SCH ×3 (06:10→21:25)
[2017-02-17] MEDS: Ipratropium 12.9 GM Inhaler INH SCH ×4 (06:39→20:46)
[2017-02-17] MEDS: Formoterol/Mometasone 200-5 MCG 8.8 GM Inhaler IH SCH ×2 (06:40→20:46)
[2017-02-17] MEDS: Calcium Carbonate/Vitamin D3 1250 MG-200 Unit Tab PO SCH ×2 (08:23→20:46)
[2017-02-17] MEDS: Aspirin 81 MG Tab.Chew PO SCH (08:23)
[2017-02-17] MEDS: Metoprolol Tartrate 25 MG Tab PO SCH ×2 (08:24→21:25)
[2017-02-17] MEDS: Gabapentin 100 MG Cap PO SCH ×2 (08:26→20:47)
[2017-02-17] MEDS: Primidone 50 MG Tab PO SCH ×2 (08:26→20:47)
[2017-02-17] MEDS: Acetaminophen 650 MG Tab.ER PO SCH ×2 (08:27→20:47)
[2017-02-17] MEDS: Multivitamin Tab PO SCH (08:27)
[2017-02-17] MEDS: Lisinopril 5 MG Tab PO SCH (08:27)
[2017-02-17] MEDS: Docusate Sodium 100 MG Cap PO SCH ×2 (09:00→20:46)
[2017-02-17] MEDS ORDERED: Warfarin Sliding Scale PO SCH (09:00)
[2017-02-17] MEDS: POLYVINYL ALCOHOL EYEBOTH SCH ×3 (10:45→20:45)
[2017-02-17] MEDS: POVIDONE EYEBOTH SCH ×3 (10:45→20:45)
[2017-02-17] MEDS ORDERED: Warfarin 5 MG Tab PO SCH (16:00)
[2017-02-17] MEDS: atorvaSTATin 10 MG Tab PO SCH (18:02)
[2017-02-18] MEDS: Amoxicillin 500 MG Cap PO SCH ×2 (06:20→14:53)
[2017-02-18] MEDS: Ipratropium 12.9 GM Inhaler INH SCH ×4 (06:21→20:05)
[2017-02-18] MEDS: Formoterol/Mometasone 200-5 MCG 8.8 GM Inhaler IH SCH ×2 (06:25→20:08)
[2017-02-18] MEDS: Docusate Sodium 100 MG Cap PO SCH ×2 (10:10→20:07)
[2017-02-18] MEDS: Calcium Carbonate/Vitamin D3 1250 MG-200 Unit Tab PO SCH ×2 (10:10→20:07)
[2017-02-18] MEDS: Aspirin 81 MG Tab.Chew PO SCH (10:10)
[2017-02-18] MEDS: Metoprolol Tartrate 25 MG Tab PO SCH ×2 (10:10→20:09)
[2017-02-18] MEDS: Gabapentin 100 MG Cap PO SCH ×2 (10:11→20:12)
[2017-02-18] MEDS: Primidone 50 MG Tab PO SCH ×2 (10:11→20:12)
[2017-02-18] MEDS: Acetaminophen 650 MG Tab.ER PO SCH ×2 (10:12→20:13)
[2017-02-18] MEDS: POLYVINYL ALCOHOL EYEBOTH SCH ×2 (10:12→20:13)
[2017-02-18] MEDS: POVIDONE EYEBOTH SCH ×2 (10:12→20:13)
[2017-02-18] MEDS: Lisinopril 5 MG Tab PO SCH (10:12)
[2017-02-18] MEDS: Multivitamin Tab PO SCH (10:12)
[2017-02-18] MEDS ORDERED: Warfarin 5 MG, Warfarin 2.5 MG PO SCH ×2 (16:00)
[2017-02-18] MEDS: atorvaSTATin 10 MG Tab PO SCH (17:52)
[2017-02-19] MEDS: Ipratropium 12.9 GM Inhaler INH SCH ×4 (06:52→20:47)
[2017-02-19] MEDS: Formoterol/Mometasone 200-5 MCG 8.8 GM Inhaler IH SCH (06:52)
[2017-02-19] MEDS: Metoprolol Tartrate 25 MG Tab PO SCH ×2 (10:38→20:53)
[2017-02-19] MEDS: Calcium Carbonate/Vitamin D3 1250 MG-200 Unit Tab PO SCH ×2 (10:38→20:52)
[2017-02-19] MEDS: Aspirin 81 MG Tab.Chew PO SCH (10:38)
[2017-02-19] MEDS: Docusate Sodium 100 MG Cap PO SCH ×2 (10:38→20:52)
[2017-02-19] MEDS: POLYVINYL ALCOHOL EYEBOTH SCH ×2 (10:39→21:58)
[2017-02-19] MEDS: Gabapentin 100 MG Cap PO SCH ×2 (10:39→20:52)
[2017-02-19] MEDS: Multivitamin Tab PO SCH (10:39)
[2017-02-19] MEDS: Acetaminophen 650 MG Tab.ER PO SCH ×2 (10:39→20:53)
[2017-02-19] MEDS: Lisinopril 5 MG Tab PO SCH (10:39)
[2017-02-19] MEDS: POVIDONE EYEBOTH SCH ×2 (10:39→21:58)
[2017-02-19] MEDS: Primidone 50 MG Tab PO SCH ×2 (10:39→20:52)
--- NOTE | 2017-02-19 11:17 | PN ---
DATE SEEN: 02/19/2017 SUBJECTIVE: Denise Oreilly is a 76-year-old, female, admitted to swing bed. She has been here for three days duration, admitted on 02/16/2017. She was an inpatient at [facility]. CT by report including angiogram, CT angiogram revealed really no deficit. The patient speaks otherwise. Discharge home with TIA, but indeed persistent weakness of the right upper extremity. Ambulating with greater success with right leg in particular. LABORATORY STUDIES: INR 1.86. Coumadin levels to be adjusted according to today's ProTime. PHYSICAL EXAMINATION: VITAL SIGNS: Blood pressure 125/62, mean blood pressure 83, pulse 90, respirations 16, and O2 saturation 94%. GENERAL: Conversant as always. Speech was fluent. No facial asymmetry. Tongue midline. Good gag reflex. NECK: Benign. Thyroid small. No adenopathy. CHEST: Clear all lung allen. HEART: Regular without ectopy or murmur. ABDOMEN: Benign. EXTREMITIES: Left lower extremity equal to right lower extremity, by observation, weakness of about 25% reduction in right hand. IMPRESSION: CVA not TIA, persistent right residual weakness. PLAN: Further testing not indicated. PT actively involved, expect a short-term stay. /[id number] JOSH/LEONARDO
[2017-02-19] MEDS ORDERED: Warfarin 5 MG, Warfarin 2.5 MG PO SCH ×2 (16:00)
[2017-02-19] MEDS: atorvaSTATin 10 MG Tab PO SCH (17:07)
[2017-02-19] MEDS: ADVAIR 500/50 INH SCH (20:52)
[2017-02-20] MEDS: Ipratropium 12.9 GM Inhaler INH SCH ×4 (07:02→21:31)
[2017-02-20] MEDS: ADVAIR 500/50 INH SCH ×2 (07:02→21:33)
[2017-02-20] MEDS: Calcium Carbonate/Vitamin D3 1250 MG-200 Unit Tab PO SCH ×2 (08:42→21:33)
[2017-02-20] MEDS: Aspirin 81 MG Tab.Chew PO SCH (08:42)
[2017-02-20] MEDS: Metoprolol Tartrate 25 MG Tab PO SCH ×2 (08:42→21:34)
[2017-02-20] MEDS: Docusate Sodium 100 MG Cap PO SCH ×2 (08:42→21:33)
[2017-02-20] MEDS: Primidone 50 MG Tab PO SCH ×2 (08:43→21:33)
[2017-02-20] MEDS: Gabapentin 100 MG Cap PO SCH ×2 (08:43→21:34)
[2017-02-20] MEDS: Multivitamin Tab PO SCH (08:44)
[2017-02-20] MEDS: Acetaminophen 650 MG Tab.ER PO SCH ×2 (08:44→21:34)
[2017-02-20] MEDS: POVIDONE EYEBOTH SCH ×2 (08:44→21:34)
[2017-02-20] MEDS: POLYVINYL ALCOHOL EYEBOTH SCH ×2 (08:44→21:34)
[2017-02-20] MEDS: Lisinopril 5 MG Tab PO SCH (08:44)
--- NOTE | 2017-02-20 12:21 | PN ---
DATE SEEN: 02/20/2017 SUBJECTIVE: Denise Oreilly is a 76-year-old female in swing bed. She had a CVA with right-sided weakness. More profound right upper extremity than right lower extremity. Ambulating without difficulty. OT is actively involved. OBJECTIVE: GENERAL: In good spirits. CHEST: Clear. HEART: Regular. ABDOMEN: Benign. NEUROLOGIC: Electroplater strength reduced to about 20% in the right- hand. ASSESSMENT: Cerebrovascular accident with right-sided weakness. PLAN: Continue therapy and intervention. /[id number] JOSH/LEONARDO
[2017-02-20] MEDS ORDERED: Warfarin 2.5 MG Tab PO SCH (16:00)
[2017-02-20] MEDS: atorvaSTATin 10 MG Tab PO SCH (17:48)
[2017-02-21] MEDS: Ipratropium 12.9 GM Inhaler INH SCH ×4 (06:46→21:19)
[2017-02-21] MEDS: ADVAIR 500/50 INH SCH ×2 (06:47→21:20)
[2017-02-21] MEDS: Calcium Carbonate/Vitamin D3 1250 MG-200 Unit Tab PO SCH ×2 (08:41→21:19)
[2017-02-21] MEDS: Acetaminophen 650 MG Tab.ER PO SCH ×2 (08:41→21:21)
[2017-02-21] MEDS: Gabapentin 100 MG Cap PO SCH ×2 (08:41→21:20)
[2017-02-21] MEDS: Aspirin 81 MG Tab.Chew PO SCH (08:42)
[2017-02-21] MEDS: Docusate Sodium 100 MG Cap PO SCH ×2 (08:42→21:19)
[2017-02-21] MEDS: Metoprolol Tartrate 25 MG Tab PO SCH ×2 (08:42→21:22)
[2017-02-21] MEDS: Primidone 50 MG Tab PO SCH ×2 (08:43→21:20)
[2017-02-21] MEDS: Lisinopril 5 MG Tab PO SCH (08:44)
[2017-02-21] MEDS: POVIDONE EYEBOTH SCH ×2 (08:44→21:22)
[2017-02-21] MEDS: POLYVINYL ALCOHOL EYEBOTH SCH ×2 (08:44→21:22)
[2017-02-21] MEDS: Multivitamin Tab PO SCH (08:45)
[2017-02-21] MEDS ORDERED: Warfarin 5 MG Tab PO SCH (16:00)
[2017-02-21] MEDS: atorvaSTATin 10 MG Tab PO SCH (17:56)
[2017-02-22] MEDS: ADVAIR 500/50 INH SCH ×2 (06:50→20:20)
[2017-02-22] MEDS: Ipratropium 12.9 GM Inhaler INH SCH ×4 (06:50→20:12)
--- NOTE | 2017-02-22 08:30 | PCM.PN ---
- General Info Date of Service: 02/22/17 Admission Dx/Problem (Free Text): Patient states she feels like her right eye and right mouth drooping last couple days. She states she has a couple very small aneurysms in her brain that the neurologist in are watching. She denies any right sided weakness, swallowing, speaking, diplopia, blurred vision. She continues to have the right arm weakness but she says it's improving. - Patient Data Vitals - most recent: Last Vital Signs Temp 97.7 F 02/21/17 09:00 Pulse 84 02/21/17 21:22 Resp 18 02/21/17 09:00 BP 122/60 02/21/17 21:22 Pulse Ox 93 L 02/21/17 09:00 Weight - most recent: 135 lb 4.8 oz I&O - last 24 hours: Intake & Output 02/21/17 02/22/17 02/22/17 22:59 06:59 14:59 Intake Total 220 Balance 220 Lab Results last 24 hrs: Laboratory Results - last 24 hr 02/22/17 Range/Units 06:23 PT 17.8 H (8.7-11.1) INR 1.74 H (0.89-1.13) Med Orders - Current: Current Medications Acetaminophen (Tylenol Arthritis Pain) 1,300 mg PO BID [facility] Last Admin: 02/21/17 21:21 Dose: 1,300 mg Aspirin (Aspirin) 81 mg PO DAILY [facility] Last Admin: 02/21/17 08:42 Dose: 81 mg Atorvastatin Calcium (Lipitor) 10 mg PO 1800 [facility] Last Admin: 02/21/17 17:56 Dose: 10 mg Calcium Carbonate (Calcium Carbonate/Vitamin D 1250 Mg-200 Unit) 1 tab PO BID [facility] Last Admin: 02/21/17 21:19 Dose: 1 tab Docusate Sodium (Colace) 100 mg PO BID [facility] Last Admin: 02/21/17 21:19 Dose: 100 mg Gabapentin (Neurontin) 100 mg PO BID [facility] Last Admin: 02/21/17 21:20 Dose: 100 mg Ipratropium [place] (Atrovent Hfa) 0 gm INH QIDRT [facility] Last Admin: 02/22/17 06:50 Dose: 2 puff Lisinopril (Prinivil) 5 mg PO DAILY [facility] Last Admin: 02/21/17 08:44 Dose: 5 mg Metoprolol Tartrate (Lopressor) 12.5 mg PO BID [facility] Last Admin: 02/21/17 21:22 Dose: 12.5 mg Multivitamins/Minerals/Vitamin C (Tab-A-Neftali) 1 tab PO DAILY [facility] Last Admin: 02/21/17 08:45 Dose: 1 tab Non-Formulary Medication 1 Each ( Polyvinyl Alcohol/Povidone] *Ptom 1 drop EYEBOTH BID [facility] Last Admin: 02/21/17 21:22 Dose: 1 drop Advair 500/50 1 each INH BIDRT [facility] Last Admin: 02/22/17 06:50 Dose: 1 each Primidone (Mysoline) 150 mg PO DAILY [facility] Last Admin: 02/21/17 08:43 Dose: 150 mg Primidone (Mysoline) 100 mg PO BEDTIME [facility] Last Admin: 02/21/17 21:20 Dose: 100 mg Warfarin Sodium (Coumadin Sliding Scale) 1 each PO 1600 [facility] Warfarin Sodium (Coumadin) 5 mg PO 1600 [facility] Last Admin: 02/21/17 16:26 Dose: 5 mg Discontinued Medications Amoxicillin (Amoxil) 500 mg PO Q8H [facility] Stop: 02/18/17 14:01 Last Admin: 02/18/17 14:53 Dose: 500 mg Mometasone Furoate/Formoterol Fumar (Dulera 200-5 Mcg) 2 puff IH BIDRT [facility] Last Admin: 02/17/17 06:40 Dose: 2 puff Mometasone Furoate/Formoterol Fumar (Dulera 100-5 Mcg) Confirm Administered Dose 60 puff .ROUTE .[facility] Stop: 02/16/17 21:24 Last Admin: 02/16/17 21:47 Dose: Not Given Mometasone Furoate/Formoterol Fumar (Dulera 200-5 Mcg) 2 puff IH BIDRT [facility] Last Admin: 02/19/17 06:52 Dose: 2 puff Warfarin Sodium (Coumadin Sliding Scale) 1 each PO DAILY [facility] Warfarin Sodium (Coumadin) 5 mg PO 1600 [facility] Last Admin: 02/17/17 16:09 Dose: 5 mg Warfarin Sodium 5 mg/ Warfarin (Sodium 2.5 mg) 7.5 mg PO 1600 [facility] Stop: 02/18/17 16:01 Last Admin: 02/18/17 17:14 Dose: 7.5 mg Warfarin Sodium 5 mg/ Warfarin (Sodium 2.5 mg) 7.5 mg PO 1600 [facility] Stop: 02/19/17 16:01 Last Admin: 02/19/17 15:47 Dose: 7.5 mg Warfarin Sodium (Coumadin) 2.5 mg PO 1600 [facility] Stop: 02/20/17 16:01 Last Admin: 02/20/17 16:22 Dose: 2.5 mg - Exam General: alert, oriented, cooperative Neck: supple Lungs: Clear to auscultation, Normal respiratory effort Cardiovascular: Regular Rate, Irregular Rhythm. No: Murmurs Extremities: other (Right arm weakness. Left arm and leg are normal. Right leg normal strength.) Skin: warm, dry, intact Neurological: normal speech, normal tone, other (I tested all the cranial nerves in the normal. She has no signs of right facial weakness.) - Problem List & Annotations (1) Left-sided cerebrovascular accident (CVA) SNOMED Code(s): 157505021 Code(s): I63.9 - CEREBRAL INFARCTION, UNSPECIFIED Status: Acute Current Visit: Yes (2) Atrial fibrillation SNOMED Code(s): 14674666 Code(s): I48.91 - UNSPECIFIED ATRIAL FIBRILLATION Status: Acute Current Visit: Yes - Problem List Review Problem List Initiated/Reviewed/Updated: Yes - My Orders Last 24 Hours: My Active Orders 02/21/17 16:00 Warfarin [Coumadin] 5 mg PO 1600 02/23/17 06:00 INR,PT,PROTHROMBIN TIME [COAG] DAILY - Plan Plan:: 1. Continue PT/OT. 2. I do not see any evidence of stroke on her right face her left arm at this time. I told her it would be different than the one she has now. She is on Coumadin. We will watch closely to see if there is any changes.
[2017-02-22] MEDS: Metoprolol Tartrate 25 MG Tab PO SCH ×2 (08:31→20:18)
[2017-02-22] MEDS: Docusate Sodium 100 MG Cap PO SCH ×2 (08:31→20:12)
[2017-02-22] MEDS: Calcium Carbonate/Vitamin D3 1250 MG-200 Unit Tab PO SCH ×2 (08:31→20:12)
[2017-02-22] MEDS: Aspirin 81 MG Tab.Chew PO SCH (08:31)
[2017-02-22] MEDS: Lisinopril 5 MG Tab PO SCH (08:32)
[2017-02-22] MEDS: POLYVINYL ALCOHOL EYEBOTH SCH ×2 (08:32→20:13)
[2017-02-22] MEDS: Acetaminophen 650 MG Tab.ER PO SCH ×2 (08:32→20:13)
[2017-02-22] MEDS: POVIDONE EYEBOTH SCH ×2 (08:32→20:13)
[2017-02-22] MEDS: Multivitamin Tab PO SCH (08:32)
[2017-02-22] MEDS: Primidone 50 MG Tab PO SCH ×2 (08:32→20:13)
[2017-02-22] MEDS: Gabapentin 100 MG Cap PO SCH ×2 (08:32→20:13)
[2017-02-22] MEDS ORDERED: Warfarin 5 MG, Warfarin 2.5 MG PO SCH ×2 (16:00)
[2017-02-22] MEDS: atorvaSTATin 10 MG Tab PO SCH (17:21)
[2017-02-23] MEDS: Ipratropium 12.9 GM Inhaler INH SCH ×4 (07:03→20:48)
[2017-02-23] MEDS: ADVAIR 500/50 INH SCH ×2 (07:04→20:50)
[2017-02-23] MEDS: Metoprolol Tartrate 25 MG Tab PO SCH ×2 (08:55→20:48)
[2017-02-23] MEDS: Aspirin 81 MG Tab.Chew PO SCH (08:55)
[2017-02-23] MEDS: Calcium Carbonate/Vitamin D3 1250 MG-200 Unit Tab PO SCH ×2 (08:55→20:48)
[2017-02-23] MEDS: Docusate Sodium 100 MG Cap PO SCH ×2 (08:55→20:48)
[2017-02-23] MEDS: Primidone 50 MG Tab PO SCH ×2 (08:56→20:49)
[2017-02-23] MEDS: POLYVINYL ALCOHOL EYEBOTH SCH ×2 (08:57→20:50)
[2017-02-23] MEDS: Gabapentin 100 MG Cap PO SCH ×2 (08:57→20:50)
[2017-02-23] MEDS: POVIDONE EYEBOTH SCH ×2 (08:57→20:50)
[2017-02-23] MEDS: Lisinopril 5 MG Tab PO SCH (08:57)
[2017-02-23] MEDS: Acetaminophen 650 MG Tab.ER PO SCH ×2 (08:58→20:50)
[2017-02-23] MEDS: Multivitamin Tab PO SCH (08:58)
[2017-02-23] MEDS: Warfarin 5 MG Tab PO SCH (16:42)
[2017-02-23] MEDS: atorvaSTATin 10 MG Tab PO SCH (18:25)
[2017-02-24] MEDS: Ipratropium 12.9 GM Inhaler INH SCH ×4 (06:10→20:40)
[2017-02-24] MEDS: ADVAIR 500/50 INH SCH ×2 (06:12→20:49)
--- NOTE | 2017-02-24 08:55 | PCM.PN ---
- General Info Date of Service: 02/24/17 Admission Dx/Problem (Free Text): Patient without complaints. Right hand is improving but still weak. - Patient Data Vitals - most recent: Last Vital Signs Temp 98.5 F 02/23/17 08:25 Pulse 89 02/23/17 20:48 Resp 16 02/23/17 08:25 BP 114/66 02/23/17 20:48 Pulse Ox 94 L 02/23/17 08:25 Weight - most recent: 137 lb 6.4 oz I&O - last 24 hours: Intake & Output 02/23/17 02/24/17 02/24/17 22:59 06:59 14:59 Intake Total 250 Output Total 0 Balance 250 Lab Results last 24 hrs: Laboratory Results - last 24 hr 02/24/17 Range/Units 06:25 PT 26.7 H (8.7-11.1) INR 2.59 H (0.89-1.13) Med Orders - Current: Current Medications Acetaminophen (Tylenol Arthritis Pain) 1,300 mg PO BID [facility] Last Admin: 02/23/17 20:50 Dose: 1,300 mg Aspirin (Aspirin) 81 mg PO DAILY [facility] Last Admin: 02/23/17 08:55 Dose: 81 mg Atorvastatin Calcium (Lipitor) 10 mg PO 1800 [facility] Last Admin: 02/23/17 18:25 Dose: 10 mg Calcium Carbonate (Calcium Carbonate/Vitamin D 1250 Mg-200 Unit) 1 tab PO BID [facility] Last Admin: 02/23/17 20:48 Dose: 1 tab Docusate Sodium (Colace) 100 mg PO BID [facility] Last Admin: 02/23/17 20:48 Dose: 100 mg Gabapentin (Neurontin) 100 mg PO BID [facility] Last Admin: 02/23/17 20:50 Dose: 100 mg Ipratropium [place] (Atrovent Hfa) 0 gm INH QIDRT [facility] Last Admin: 02/24/17 06:10 Dose: 2 puff Lisinopril (Prinivil) 5 mg PO DAILY [facility] Last Admin: 02/23/17 08:57 Dose: 5 mg Metoprolol Tartrate (Lopressor) 12.5 mg PO BID [facility] Last Admin: 02/23/17 20:48 Dose: 12.5 mg Multivitamins/Minerals/Vitamin C (Tab-A-Neftali) 1 tab PO DAILY [facility] Last Admin: 02/23/17 08:58 Dose: 1 tab Non-Formulary Medication 1 Each ( Polyvinyl Alcohol/Povidone] *Ptom 1 drop EYEBOTH BID [facility] Last Admin: 02/23/17 20:50 Dose: 1 drop Advair 500/50 1 each INH BIDRT [facility] Last Admin: 02/24/17 06:12 Dose: 1 each Primidone (Mysoline) 150 mg PO DAILY [facility] Last Admin: 02/23/17 08:56 Dose: 150 mg Primidone (Mysoline) 100 mg PO BEDTIME [facility] Last Admin: 02/23/17 20:49 Dose: 100 mg Warfarin Sodium (Coumadin Sliding Scale) 1 each PO 1600 [facility] Warfarin Sodium (Coumadin) 5 mg PO SuTuWeThSa@1600 [facility] Last Admin: 02/23/17 16:42 Dose: 5 mg Warfarin Sodium 2.5 mg/ (Warfarin Sodium 5 mg) 7.5 mg PO MoFr@1600 [facility] Discontinued Medications Amoxicillin (Amoxil) 500 mg PO Q8H [facility] Stop: 02/18/17 14:01 Last Admin: 02/18/17 14:53 Dose: 500 mg Mometasone Furoate/Formoterol Fumar (Dulera 200-5 Mcg) 2 puff IH BIDRT [facility] Last Admin: 02/17/17 06:40 Dose: 2 puff Mometasone Furoate/Formoterol Fumar (Dulera 100-5 Mcg) Confirm Administered Dose 60 puff .ROUTE .[facility] Stop: 02/16/17 21:24 Last Admin: 02/16/17 21:47 Dose: Not Given Mometasone Furoate/Formoterol Fumar (Dulera 200-5 Mcg) 2 puff IH BIDRT [facility] Last Admin: 02/19/17 06:52 Dose: 2 puff Warfarin Sodium (Coumadin Sliding Scale) 1 each PO DAILY [facility] Warfarin Sodium (Coumadin) 5 mg PO 1600 [facility] Last Admin: 02/17/17 16:09 Dose: 5 mg Warfarin Sodium 5 mg/ Warfarin (Sodium 2.5 mg) 7.5 mg PO 1600 [facility] Stop: 02/18/17 16:01 Last Admin: 02/18/17 17:14 Dose: 7.5 mg Warfarin Sodium (Coumadin) 5 mg PO 1600 [facility] Last Admin: 02/21/17 16:26 Dose: 5 mg Warfarin Sodium 5 mg/ Warfarin (Sodium 2.5 mg) 7.5 mg PO 1600 [facility] Stop: 02/19/17 16:01 Last Admin: 02/19/17 15:47 Dose: 7.5 mg Warfarin Sodium (Coumadin) 2.5 mg PO 1600 [facility] Stop: 02/20/17 16:01 Last Admin: 02/20/17 16:22 Dose: 2.5 mg Warfarin Sodium 5 mg/ Warfarin (Sodium 2.5 mg) 7.5 mg PO 1600 [facility] Stop: 02/22/17 16:01 Last Admin: 02/22/17 15:50 Dose: 7.5 mg - Exam General: alert, oriented, cooperative Lungs: Normal respiratory effort Extremities: no edema - Problem List & Annotations (1) Left-sided cerebrovascular accident (CVA) SNOMED Code(s): 565109394 Code(s): I63.9 - CEREBRAL INFARCTION, UNSPECIFIED Status: Acute Current Visit: Yes (2) Atrial fibrillation SNOMED Code(s): 69984073 Code(s): I48.91 - UNSPECIFIED ATRIAL FIBRILLATION Status: Acute Current Visit: Yes - Problem List Review Problem List Initiated/Reviewed/Updated: Yes - My Orders Last 24 Hours: My Active Orders 02/23/17 16:00 Warfarin [Coumadin] 5 mg PO SuTuWeThSa@1600 02/26/17 16:00 Warfarin [Coumadin] 7.5 mg PO MoFr@1600 - Plan Plan:: 1. Discharged home on home home health, PT, OT.
--- NOTE | 2017-02-24 09:03 | PCM.DCSUM1 ---
Discharge Summary - Hospital Course Free Text/Narrative:: Hospital course-patient did well. She had PT/OT. The only real issue she was having as weakness in her right hand. Legs were fine with strength and ambulation. They worked with her and she slowly got better but still had some residual right hand weakness. On one day she felt that she was having facial droop on the right side which is the opposite side of her stroke. Negative evaluation. Patient feelings improved. INR was managed by pharmacy. Brief History: This is a 76-year-old female patient that had a left CVA with right-sided weakness. She was transferred to [facility]. Discharged to [facility]Note 3] for rehab. She says she had profound weakness in the arm and the leg. Now the leg is recovered and is mostly just the hand. She denies dysphagia or aphagia. She has a history of atrial fibrillation and a valve repair on Coumadin. She has no other concerns today. - Discharge Data Discharge Date: 02/24/17 Discharge Disposition: Home, Home Health Agency Condition: Good - Discharge Diagnosis/Problem(s) (1) Left-sided cerebrovascular accident (CVA) SNOMED Code(s): 141183325 ICD Code: I63.9 - CEREBRAL INFARCTION, UNSPECIFIED Status: Acute Current Visit: Yes (2) Atrial fibrillation SNOMED Code(s): 63080800 ICD Code: I48.91 - UNSPECIFIED ATRIAL FIBRILLATION Status: Acute Current Visit: Yes - Patient Summary/Data Consults: Consultations 02/16/17 12:00 OT Evaluation and Treatment [CONS] Routine Please Evaluate and Treat. OT Reason for Consult: CVA with RIGHT HEMIPARESIS This query below is only for informational purposes and is not editable. PT Evaluation and Treatment [CONS] Routine Please Evaluate and Treat. PT Reason for Consult: cva with left hemiparesis This query below is only for informational purposes and is not editable. - Patient Instructions Diet: Regular Diet as Tolerated Activity: As Tolerated Driving: Do Not Drive Showering/Bathing: May Shower Notify Provider of: Increased Pain, Swelling and Redness Other/Special Instructions: 1. Recheck with Sonia Vital in 7-10 days. 2. INR in 2 days on Wednesday and call to essential clinic and get plugged into the INR clinic. 3. Home health, PT, OT in regards to home safety, medication management, strengthening, ambulation, ADLs, education - Discharge Plan Prescriptions/Med Rec: Warfarin [Coumadin] 7.5 mg PO MoFr@1600 #30 tablet Warfarin [Coumadin] 5 mg PO SuTuWeThSa@1600 #30 tablet Home Medications: Home Meds Docusate Sodium 100 mg PO BID 11/08/13 [History] Multivitamin [Multi-Vitamin Daily] 1 tab PO DAILY 11/08/13 [History] Primidone [Mysoline] 150 mg PO DAILY 11/08/13 [History] Acetaminophen [Tylenol Arthritis Pain] 1,300 mg PO BID 10/08/15 [History] Metoprolol Tartrate [Lopressor] 12.5 mg PO BID 10/08/15 [History] Primidone [Mysoline] 100 mg PO BEDTIME 10/08/15 [History] atorvaSTATin [Lipitor] 10 mg PO 1800 10/08/15 [History] Gabapentin [Neurontin] 100 mg PO BID cap 10/11/15 [Rx] Ipratropium [Atrovent HFA] 2 puff IH QID 02/12/16 [History] Lisinopril 5 mg PO DAILY 02/12/16 [History] Fluticasone/Salmeterol [Advair Diskus 500-50] 1 puff INH BID #1 diskus 09/20/16 [Rx] Polyvinyl Alcohol/Povidone/Pf [Refresh Classic Eye Drops] 1 drop EYEBOTH BID 06/22 [History] Amoxicillin [Amoxil] 500 mg PO Q8H 02/16/17 [History] Aspirin 81 mg PO DAILY 02/16/17 [History] Calcium Carbonate/Vitamin D3 [Calcium 500-Vit D3 200 Caplet] 1 each PO BID 02/16 [History] Warfarin Sliding Scale [Coumadin Sliding Scale] 1 each PO DAILY 02/16/17 [ History] Warfarin [Coumadin] 5 mg PO SuTuWeThSa@1600 #30 tablet 02/24/17 [Rx] Warfarin [Coumadin] 7.5 mg PO MoFr@1600 #30 tablet 02/24/17 [Rx] - Discharge Summary/Plan Comment DC Time >30 min.: No - Patient Data Vitals - Most Recent: Last Vital Signs Temp 98.5 F 02/23/17 08:25 Pulse 89 02/23/17 20:48 Resp 16 06/20/17 08:25 BP 114/66 02/23/17 20:48 Pulse Ox 94 L 02/23/17 08:25 Weight - Most Recent: 137 lb 6.4 oz I&O - Last 24 hours: Intake & Output 02/23/17 02/24/17 02/24/17 22:59 06:59 14:59 Intake Total 250 Output Total 0 Balance 250 Lab Results - Last 24 hrs: Laboratory Results - last 24 hr 02/24/17 Range/Units 06:25 PT 26.7 H (8.7-11.1) INR 2.59 H (0.89-1.13) Med Orders - Current: Current Medications Acetaminophen (Tylenol Arthritis Pain) 1,300 mg PO BID [facility] Last Admin: 02/23/17 20:50 Dose: 1,300 mg Aspirin (Aspirin) 81 mg PO DAILY [facility] Last Admin: 02/23/17 08:55 Dose: 81 mg Atorvastatin Calcium (Lipitor) 10 mg PO 1800 [facility] Last Admin: 02/23/17 18:25 Dose: 10 mg Calcium Carbonate (Calcium Carbonate/Vitamin D 1250 Mg-200 Unit) 1 tab PO BID [facility] Last Admin: 02/23/17 20:48 Dose: 1 tab Docusate Sodium (Colace) 100 mg PO BID [facility] Last Admin: 02/23/17 20:48 Dose: 100 mg Gabapentin (Neurontin) 100 mg PO BID [facility] Last Admin: 02/23/17 20:50 Dose: 100 mg Ipratropium [place] (Atrovent Hfa) 0 gm INH QIDRT [facility] Last Admin: 02/24/17 06:10 Dose: 2 puff Lisinopril (Prinivil) 5 mg PO DAILY [facility] Last Admin: 02/23/17 08:57 Dose: 5 mg Metoprolol Tartrate (Lopressor) 12.5 mg PO BID [facility] Last Admin: 02/23/17 20:48 Dose: 12.5 mg Multivitamins/Minerals/Vitamin C (Tab-A-Neftali) 1 tab PO DAILY [facility] Last Admin: 02/23/17 08:58 Dose: 1 tab Non-Formulary Medication 1 Each ( Polyvinyl Alcohol/Povidone] *Ptom 1 drop EYEBOTH BID [facility] Last Admin: 02/23/17 20:50 Dose: 1 drop Advair 500/50 1 each INH BIDRT [facility] Last Admin: 02/24/17 06:12 Dose: 1 each Primidone (Mysoline) 150 mg PO DAILY [facility] Last Admin: 02/23/17 08:56 Dose: 150 mg Primidone (Mysoline) 100 mg PO BEDTIME [facility] Last Admin: 02/23/17 20:49 Dose: 100 mg Warfarin Sodium (Coumadin Sliding Scale) 1 each PO 1600 [facility] Warfarin Sodium (Coumadin) 5 mg PO SuTuWeThSa@1600 [facility] Last Admin: 02/23/17 16:42 Dose: 5 mg Warfarin Sodium 2.5 mg/ (Warfarin Sodium 5 mg) 7.5 mg PO MoFr@1600 [facility] Discontinued Medications Amoxicillin (Amoxil) 500 mg PO Q8H [facility] Stop: 02/18/17 14:01 Last Admin: 02/18/17 14:53 Dose: 500 mg Mometasone Furoate/Formoterol Fumar (Dulera 200-5 Mcg) 2 puff IH BIDRT [facility] Last Admin: 02/17/17 06:40 Dose: 2 puff Mometasone Furoate/Formoterol Fumar (Dulera 100-5 Mcg) Confirm Administered Dose 60 puff .ROUTE .[facility] Stop: 02/16/17 21:24 Last Admin: 02/16/17 21:47 Dose: Not Given Mometasone Furoate/Formoterol Fumar (Dulera 200-5 Mcg) 2 puff IH BIDRT [facility] Last Admin: 02/19/17 06:52 Dose: 2 puff Warfarin Sodium (Coumadin Sliding Scale) 1 each PO DAILY [facility] Warfarin Sodium (Coumadin) 5 mg PO 1600 [facility] Last Admin: 02/17/17 16:09 Dose: 5 mg Warfarin Sodium 5 mg/ Warfarin (Sodium 2.5 mg) 7.5 mg PO 1600 [facility] Stop: 02/18/17 16:01 Last Admin: 02/18/17 17:14 Dose: 7.5 mg Warfarin Sodium (Coumadin) 5 mg PO 1600 [facility] Last Admin: 02/21/17 16:26 Dose: 5 mg Warfarin Sodium 5 mg/ Warfarin (Sodium 2.5 mg) 7.5 mg PO 1600 [facility] Stop: 02/19/17 16:01 Last Admin: 02/19/17 15:47 Dose: 7.5 mg Warfarin Sodium (Coumadin) 2.5 mg PO 1600 [facility] Stop: 02/20/17 16:01 Last Admin: 02/20/17 16:22 Dose: 2.5 mg Warfarin Sodium 5 mg/ Warfarin (Sodium 2.5 mg) 7.5 mg PO 1600 [facility] Stop: 02/22/17 16:01 Last Admin: 02/22/17 15:50 Dose: 7.5 mg *Q Meaningful Use (DIS) - VTE *Q VTE Criteria *Q: - Stroke *Q Stroke Criteria *Q: - AMI *Q AMI Criteria *Q:
[2017-02-24] MEDS: Aspirin 81 MG Tab.Chew PO SCH (09:28)
[2017-02-24] MEDS: Calcium Carbonate/Vitamin D3 1250 MG-200 Unit Tab PO SCH ×2 (09:28→20:44)
[2017-02-24] MEDS: Metoprolol Tartrate 25 MG Tab PO SCH ×2 (09:28→20:46)
[2017-02-24] MEDS: Docusate Sodium 100 MG Cap PO SCH ×2 (09:28→20:44)
[2017-02-24] MEDS: Gabapentin 100 MG Cap PO SCH ×2 (09:37→20:48)
[2017-02-24] MEDS: Primidone 50 MG Tab PO SCH ×2 (09:37→20:47)
[2017-02-24] MEDS: POLYVINYL ALCOHOL EYEBOTH SCH ×2 (09:37→20:50)
[2017-02-24] MEDS: POVIDONE EYEBOTH SCH ×2 (09:37→20:50)
[2017-02-24] MEDS: Lisinopril 5 MG Tab PO SCH (09:38)
[2017-02-24] MEDS: Multivitamin Tab PO SCH (09:38)
[2017-02-24] MEDS: Acetaminophen 650 MG Tab.ER PO SCH ×2 (09:38→20:51)
[2017-02-24] MEDS: Warfarin 5 MG Tab PO SCH (16:42)
[2017-02-24] MEDS: atorvaSTATin 10 MG Tab PO SCH (18:14)
[2017-02-24 20:55] VITALS: BP 108/55
[2017-02-26] MEDS ORDERED: Warfarin 2.5 MG, Warfarin 5 MG PO SCH ×2 (16:00)
== END 2017-02-24 21:00 | disposition home health service (06) | DRG 57 ==
LOC: FB.MS 15:35
PROVIDERS: ADMIT Family Medicine; ATTEND Family Medicine
DX: I69.951 Hemiplegia and hemiparesis following unspecified cerebrovascular disease affecting right dominant side (principal); F17.210 Nicotine dependence, cigarettes, uncomplicated; J44.9 Chronic obstructive pulmonary disease, unspecified; I10 Essential (primary) hypertension; I48.91 Unspecified atrial fibrillation; Z95.2 Presence of prosthetic heart valve; Z88.8 Allergy status to other drugs, medicaments and biological substances; Z79.82 Long term (current) use of aspirin; E78.00 Pure hypercholesterolemia, unspecified; Z95.0 Presence of cardiac pacemaker; R25.1 Tremor, unspecified
CPT/HCPCS: 36415; 85610; 97112-GO; 97116-GP; 97161-GP; 97166-GO; 97535-GO; A9270-GY

== ENCOUNTER 2017-03-12 16:40 | Emergency (ER) | payer MEDICARE, OTHER, MEDICAID ==
[2017-03-12] MEDS ORDERED: HYDROmorphone 2 MG/ML SDV IVPUSH ONE (17:52)
[2017-03-12] MEDS ORDERED: Ondansetron 4 MG/2 ML SDV IVPUSH ONE (17:54)
[2017-03-12] MEDS: Sodium Chloride 0.9% 10 ML Syringe FLUSH PRN ×3 (18:10→20:34)
[2017-03-12] MEDS ORDERED: Iopamidol 755 Mg/ML 100 ML Bottle IV ONE (18:52)
[2017-03-12] MEDS ORDERED: HYDROmorphone 2 MG/ML SDV IM ONE (20:30)
[2017-03-12] MEDS ORDERED: Sodium Chloride 0.9% 1,000 ML IV SCH (21:15)
[2017-03-12 21:31] VITALS: BP 125/66
--- NOTE | 2017-03-14 11:06 | ER ---
DATE SEEN: 03/12/2017 CHIEF COMPLAINT: Abdominal pain. HISTORY OF PRESENT ILLNESS: This 76-year-old woman had a CVA in the first week in February. She was in [place] and was taken immediately to [facility] and treated for CVA. The left CVA resulted in right hemiparesis, which with physical therapy has resolved leaving a right hand hemiparesis. Since then, she was seen on 03/10/2017 in the clinic and treated for urinary tract infection. Macrodantin was started 2 days ago. The patient is on anticoagulant because for her CVA. She has previous history of seizure disorder treated with Mysoline. Hypertension treated with lisinopril. Dyslipidemia treated with atorvastatin. For the past 2 days, she has had increasing midepigastric abdominal discomfort. This morning, she felt diaphoretic and nauseated, did not vomit. The patient is status post appendectomy. Previous partial small bowel resection for infarcted bowel and one month later had infarcted colon and had a partial colon resection. Most recent INR for anticoagulation of her stroke was 3.8 on Wednesday03/10/2017. She has not taken her anticoagulants since then, except for she took 2.5 mg yesterday. Today, at noon, she had a sloppy sandrita. Since then, she has been very nauseated. PREVIOUS SURGERY: Abdomen surgery was 2000. SOCIAL HISTORY: The patient gets up and walks around with a walker. She lives in her home. MEDICAL HISTORY: Left CVA, atrial fibrillation, COPD, smoker 1/4th pack per day for 50 years (12.5 pack years). Essential tremor, depression, restless legs syndrome. MEDICATIONS: 1. Macrodantin. 2. Atorvastatin 10 mg daily. 3. Warfarin 2.5 mg today. Otherwise, 7.5 mg Wednesday and Wednesday and 5 mg Wednesday, Wednesday, Wednesday, , and Wednesday. 4. Mysoline 100 mg h.s., 150 mg daily. 5. Eye drops b.i.d. 6. Multivitamins daily. 7. Metoprolol 12.5 mg b.i.d. 8. Lisinopril 5 mg daily. 9. Atrovent 2 puffs q.i.d. 10.Gabapentin for chronic pain 100 mg b.i.d. 11.Advair Diskus 500-50 b.i.d. 12.Colace b.i.d. 100 mg. 13.Calcium carbonate with vitamin D. 14.Aspirin 81 mg daily. 15.Acetaminophen as needed b.i.d. REVIEW OF SYSTEMS: CONSTITUTIONAL: The patient has decreased vision. Decreased hearing. The patient denies sinus infections, sore throat. CARDIORESPIRATORY: She has mild shortness of breath with exertion. Denies increase in dyspnea. Denies chest pain or irregular heartbeat, although she has previous documented atrial fibrillation. CARDIAC: Denies chest pain. GI: As noted above. No recent hematochezia, constipation, bright red blood in the stool, melena, vomiting, back pain, inguinal pain. : Denies frequency, urgency, or dysuria, but wears Depends and has occasional incontinence. MUSCULOSKELETAL: Mild weakness, mild arthritis. Extensively, she is up again, is able to move around on her own with a walker. NEUROLOGY: No recent seizure, but she is on seizure medicine and anticoagulation with a previous stroke, left CVA noted in February. PHYSICAL EXAMINATION: VITAL SIGNS: Blood pressure 111/55, heart rate 92 and regular, respirations 20, oxygen saturation 91% on room air, 36.4 degrees centigrade, weight 63.5 kilos, 1.63 meters, BMI 24. GENERAL: Alert woman, looks older than her age. Moderate inaja's feet noted, mild subcutaneous thinning. Asthenic, not overweight. HEENT: PERRLA intact. Speech is appropriate. Slow speech. No scanning or searching of speech. NECK: No bruits. LUNGS: Decreased air exchange. Occasional rales noted. No wheezes. No rhonchi. HEART: S1-S2. Regular rhythm. Soft systolic murmur noted. ABDOMEN: Firm, moderate guarding. Generalized abdominal discomfort. No heel jar pain, abdominal pain induction. Mild rebound. No CVA percussion tenderness. PELVIC AND RECTAL: Not performed. EXTREMITIES: Lower extremities without pedal edema. MUSCULOSKELETAL: Decreased muscle mass in the upper and lower extremities. Mild clubbing of fingers. NEUROLOGIC: Oriented x3. Speech appropriate. Cranial nerves 2-12 intact. No facial asymmetry. Right upper extremity paresis. Left greater than right trauma. Hand clinical social work therapist is slightly decreased on the right side. Right leg and left leg strength is good and symmetrical. Deep tendon reflexes are hypoactive in upper and lower extremities. Cranial nerves 2 through 12 intact. Hearing slightly decreased. Vision is slightly decreased. Oriented x3. LABORATORY FINDINGS: White count 11,200, PMNs 79, lymphocytes 12, bands 1, hemoglobin 14, 156,000 platelets. D-dimer is 705 (not abnormal for age using the 10-rule) is considered normal. INR 1.08. Sodium 141; potassium 4.3; chloride 102; bicarb 30, elevated. BUN 20, creatinine 0.7. GFR greater than 60. BUN and creatinine ratio reflecting dehydration 28.6. Lactic acid 1.8. Glucose 108. AST is very slightly elevated at 32. Alkaline phosphatase is normal. Troponin less than 0.01. EKG sinus rhythm. Mild left atrial enlargement. Mild RVH with RSR in V1 and V2. [place] 30 degrees. LABORATORY DATA: CAT scan of the abdomen with IV contrast, minimal left bibasilar lung atelectasis. Cardiac pacemaker. Status post mitral valve replacement, cholelithiasis. No evidence for cholecystitis. Small cysts in the kidneys, right, 4-5 cm right femoral hernia containing a short segment of small bowel and a small amount of fluid. Abnormal dilation of small bowel proximal, collapse of small bowel distal to the hernia consistent with small bowel obstruction. Postoperative changes consistent with dilated small bowel in the right lower quadrant and prior resection of the proximal colon with ileocolic anastomosis in the right lower quadrant. ASSESSMENT: 1. Intermediate to high-grade small bowel obstruction due to entrapment of short segment in the right femoral hernia. 2. Cholelithiasis. No evidence for cholecystitis. 3. Left basilar lung atelectasis. 4. Previous cardiac pacemaker. 5. Status post mitral valve replacement. 6. Elevated D-dimer, which is normal for age. 7. No evidence for elevation of lactic acidosis. 8. No elevation of INR. Family requested to be sent to [place] essentially. I have spoken to Dr. Causey, hospitalist. The patient will be transferred by ambulance to [facility]. The patient was seen at 1750. /[id number] CISCO/SHARDAL
== END 2017-03-12 21:28 ==
LOC: FB.ED 16:40
DX: K80.20 Calculus of gallbladder without cholecystitis without obstruction (principal); K41.30 Unilateral femoral hernia, with obstruction, without gangrene, not specified as recurrent; J98.11 Atelectasis; I48.91 Unspecified atrial fibrillation; R79.1 Abnormal coagulation profile; J44.9 Chronic obstructive pulmonary disease, unspecified; F17.210 Nicotine dependence, cigarettes, uncomplicated; Z79.01 Long term (current) use of anticoagulants; Z86.73 Personal history of transient ischemic attack (TIA), and cerebral infarction without residual deficits; Z79.899 Other long term (current) drug therapy; Z79.82 Long term (current) use of aspirin; Z95.2 Presence of prosthetic heart valve
CPT/HCPCS: 36415; 74174; 80053; 83605; 84484; 85025; 85379; 85610; 93005; 96374; 96375; 99285; J1170; J2405; J7040; J7050; Q9967